=== PATIENT | female | born 1960 | race Caucasian/White ===

== ENCOUNTER 2016-10-31 02:08 | Emergency (ER) | payer OTHER ==
[~2016-10-31] VITALS: Ht 160 cm; Wt 70.0 kg
[~2016-10-31 02:08] MED LIST: ACCUNEB1.25 MG/3 IH; ANTIVERT25 MG PO; COLACE100 MG PO; DILAUDID2 MG PO; DUONEB 2.5-0.5 M3 ML AEROSOL; EFFEXOR XR150 MG PO; EFFEXOR50 MG PO; HUMIRA40 MG/0.1 SC; HYDROCODON-ACE1 EAC8 PO; LEVAQUIN750 MG PO; LEVOFLOXACIN500 MG PO; LEXAPRO20 MG PO; LYRICA50 MG PO; METHADONE1 MG/1 ML PO; MIRALAX17 GM PO; MOBIC15 MG PO; MORPHINE SULFAT15 M1; MOTRIN800 MG PO; MYCOSTATIN 100,60 ML PO; NEXIUM40 MG PO; NICOTINE PATCH1 EAC2 TD; NYSTATIN100000 UN1 PO; OPANA ER10 MG PO; OPANA ER15 MG PO; OXCARBAZEPINE150 MG PO; PREDNISONE50 MG PO; PROVENTIL,2.5 MG/3 M IH; PROZAC20 M1 PO; PROZAC40 MG PO; QUETIAPINE FUMA25 MG PO; SEROQUEL12.5 MG PO; SEROQUEL300 MG PO; SEROQUEL400 MG PO; SEROQUEL50 MG PO; SYMBICORT60 INHALAT IH; TRILEPTAL75 MG PO; TRILIPIX135 MG PO; Ultram PO; VALIUM5 MG PO; VALTREX50 MG/ML PO; VENLAFAXINE HC150 M1 PO; VICODIN,LORT1 TABLET PO; ZETIA10 MG PO
[2016-10-31 02:48] LABS: HEMATOCRIT 42.9 % (36.0-46.0); MCV 88.6 FL (83-99); MEAN PLAT.VOLUME 9.2 uM^3 (9.5-12.4); PLATELET COUNT 285 K/uL (156-360); RBC DIS.WIDTH-CV 12.6 % (11.8-14.6); RBC DIS.WIDTH-SD 40.2 % (39-53); RED BLOOD COUNT 4.84 M/uL (3.80-5.20); WHITE BLOOD COUNT 10.4 K/uL (4.1-10.2)
[2016-10-31 02:59] LABS: CHLORIDE 107 mEq/L (99-109); POTASSIUM 4.2 mEq/L (3.7-5.4); SODIUM 143 mEq/L (136-147)
[2016-10-31 03:01] LABS: GLUCOSE 114 mg/dL (70-99)
[2016-10-31 03:02] LABS: ANION GAP 13 MEQ/L (2-14)
[2016-10-31 03:05] LABS: GFR ESTIMATE (CALCULATED) > 59 mL/min/
[2016-10-31 03:06] LABS: UREA NITROGEN (BUN) 11 mg/dL (9-23)
[2016-10-31 03:09] LABS: TROP-I INTERPRETATION NEGATIVE; TROPONIN-I 0.02 ng/mL (0.0-0.30)
[2016-10-31 03:37] LABS: SERUM ETHYL ALCOHOL < 10 mg/dL
[2016-10-31 04:36] VITALS: BP 138/88
== END 2016-10-31 04:42 | disposition left against medical advice (07) ==
LOC: EME → EDBD 02:08 → EME 04:42
PROVIDERS: Emergency Medicine
DX: T40.2X1A Poisoning by other opioids, accidental (unintentional), initial encounter (principal); R07.9 Chest pain, unspecified; R25.1 Tremor, unspecified; E78.5 Hyperlipidemia, unspecified; J44.9 Chronic obstructive pulmonary disease, unspecified; K21.9 Gastro-esophageal reflux disease without esophagitis; F17.200 Nicotine dependence, unspecified, uncomplicated
CPT/HCPCS: 80048; 84484; 85027; 93005; 99281; 99285; G0480; J2060; J7030

== ENCOUNTER 2017-02-22 09:01 | Emergency (ER) | payer OTHER ==
[~2017-02-22] VITALS: Ht 160 cm; Wt 83.5 kg
[~2017-02-22 09:01] MED LIST changes: +PREDNISONE5 MG PO
[2017-02-22] MEDS ORDERED: LEVOFLOXACIN500 MG PO (09:30)
[2017-02-22] MEDS ORDERED: SEROQUEL12.5 MG PO (09:32)
[2017-02-22 10:05] LABS: BASOPHIL COUNT 0.1 K/uL (0-0.1); EOSINOPHIL (%) 2.8 % (0-5); EOSINOPHIL COUNT 0.2 K/uL (0-0.3); HEMATOCRIT 40.5 % (36.0-46.0); IMMATURE GRANULOCYTE COUNT 0.1 K/uL; INSTRUMENT ABS NEUTROPHIL CT 4.5 K/uL; MCH 31.1 PG (29.0-34.0); MCHC 33.8 G/DL (30.0-36.0); MCV 91.8 FL (83-99); MEAN PLAT.VOLUME 9.6 uM^3 (9.5-12.4); MONOCYTE (%) 9.8 % (3-12); MONOCYTE COUNT 0.8 K/uL (0-0.8); NEUTROPHIL (%) 59.2 % (45-76); NEUTROPHIL COUNT 4.5 K/uL (1.8-6.4); PLATELET COUNT 283 K/uL (156-360); RBC DIS.WIDTH-CV 12.5 % (11.8-14.6); RBC DIS.WIDTH-SD 42.1 % (39-53); RED BLOOD COUNT 4.41 M/uL (3.80-5.20); WHITE BLOOD COUNT 7.6 K/uL (4.1-10.2)
[2017-02-22 10:13] LABS: CHLORIDE 102 mEq/L (99-109); POTASSIUM 4.8 mEq/L (3.7-5.4); SODIUM 137 mEq/L (136-147)
[2017-02-22 10:15] LABS: GLUCOSE 88 mg/dL (70-99)
[2017-02-22 10:16] LABS: ANION GAP 12 MEQ/L (2-14)
[2017-02-22 10:19] LABS: GFR ESTIMATE (CALCULATED) > 59 mL/min/
[2017-02-22 10:20] LABS: UREA NITROGEN (BUN) 10 mg/dL (9-23)
[2017-02-22 10:27] LABS: ADD MIUA? YES; BILIRUBIN NEGATIVE; BLOOD SMALL; COLOR STRAW ((YELLOW)); GLUCOSE (STRIP) NEGATIVE; KETONES NEGATIVE; LEUKOCYTES NEGATIVE; NITRITE NEGATIVE; PROTEIN (STRIP) NEGATIVE; SPECIFIC GRAVITY 1.005 (1.000-1.030); UROBILINOGEN 0.2 MG/DL (0.2-1.0)
[2017-02-22 10:28] LABS: TROP-I INTERPRETATION NEGATIVE; TROPONIN-I < 0.01 ng/mL (0.0-0.30)
[2017-02-22 10:33] LABS: BACTERIA NONE SEEN /HPF; EPITHELIAL CELLS NONE SEEN /HPF; MUCUS NONE SEEN /LPF; RED BLOOD CELLS 0-5 /HPF (0-5); UCUL ADDED? NO; WHITE BLOOD CELLS 0-5 /HPF (0-5)
[2017-02-22] MEDS ORDERED: PROVENTIL,2.5 MG/3 M IH (11:28)
[2017-02-22 11:35] VITALS: BP 116/81
== END 2017-02-22 11:36 | disposition home or self-care (01) ==
LOC: EME 09:01
PROVIDERS: Emergency Medicine
DX: J44.1 Chronic obstructive pulmonary disease with (acute) exacerbation (principal); J44.0 Chronic obstructive pulmonary disease with (acute) lower respiratory infection; J18.9 Pneumonia, unspecified organism; R07.89 Other chest pain; J45.909 Unspecified asthma, uncomplicated; E78.5 Hyperlipidemia, unspecified; F31.9 Bipolar disorder, unspecified; F17.200 Nicotine dependence, unspecified, uncomplicated
CPT/HCPCS: 71010; 80048; 81003; 84484; 85025; 93005; 94640; 99281; 99284; J7512

== ENCOUNTER 2017-03-24 06:42 | Emergency (ER) | payer OTHER ==
[~2017-03-24] VITALS: Ht 165.1 cm; Wt 82.0 kg
[2017-03-24 06:46] VITALS: BP 115/68
== END 2017-03-24 06:56 | disposition left against medical advice (07) ==
LOC: EME 06:42
DX: R07.9 Chest pain, unspecified (principal); Z53.21 Procedure and treatment not carried out due to patient leaving prior to being seen by health care provider
CPT/HCPCS: 93005

== ENCOUNTER 2017-04-21 05:56 | Emergency (ER) | payer OTHER ==
[~2017-04-21] VITALS: Ht 160 cm; Wt 80.9 kg
[2017-04-21] MEDS ORDERED: MEDROL DOSEPAK4 MG PO (06:52)
[2017-04-21 07:07] VITALS: BP 139/104
== END 2017-04-21 07:07 | disposition home or self-care (01) ==
LOC: EME 05:56
DX: M19.90 Unspecified osteoarthritis, unspecified site (principal); J44.0 Chronic obstructive pulmonary disease with (acute) lower respiratory infection; J18.9 Pneumonia, unspecified organism; F17.200 Nicotine dependence, unspecified, uncomplicated; E78.5 Hyperlipidemia, unspecified; F32.9 Major depressive disorder, single episode, unspecified; Z88.0 Allergy status to penicillin
CPT/HCPCS: 99281; 99284

== ENCOUNTER → 2017-05-13 | Outpatient (CLI) | payer MEDICARE, OTHER ==
[~2017-05-13] MED LIST changes: +MEDROL DOSEPAK4 MG PO
== END | disposition home or self-care (01) ==
LOC: CDC 08:34
DX: Z79.891 Long term (current) use of opiate analgesic (principal)
CPT/HCPCS: 93000

== ENCOUNTER 2017-06-05 05:20 | Emergency (ER) | payer OTHER ==
[~2017-06-05] VITALS: Ht 160 cm; Wt 85.4 kg
[2017-06-05 06:40] LABS: HEMATOCRIT 41.3 % (36.0-46.0); MCH 30.8 PG (29.0-34.0); MCHC 33.9 G/DL (30.0-36.0); MEAN PLAT.VOLUME 9.6 uM^3 (9.5-12.4); PLATELET COUNT 264 K/uL (156-360); RBC DIS.WIDTH-CV 12.5 % (11.8-14.6); RED BLOOD COUNT 4.54 M/uL (3.80-5.20); WHITE BLOOD COUNT 6.8 K/uL (4.1-10.2)
[2017-06-05] MEDS ORDERED: NAPROSYN500 MG PO (07:04)
[2017-06-05] MEDS ORDERED: PREDNISONE5 MG PO (07:04)
[2017-06-05 07:26] LABS: CHLORIDE 102 mEq/L (99-109); POTASSIUM 4.7 mEq/L (3.7-5.4); SODIUM 138 mEq/L (136-147)
[2017-06-05 07:28] LABS: GLUCOSE 107 mg/dL (70-99)
[2017-06-05 07:29] LABS: ANION GAP 11 MEQ/L (2-14)
[2017-06-05 07:30] LABS: TOTAL BILIRUBIN 0.2 mg/dL (0.0-1.0)
[2017-06-05 07:31] LABS: ALKALINE PHOSPHATASE 103 IU/L (3-129)
[2017-06-05 07:32] LABS: GFR ESTIMATE (CALCULATED) > 59 mL/min/
[2017-06-05 07:33] LABS: UREA NITROGEN (BUN) 7 mg/dL (9-23)
[2017-06-05 08:40] VITALS: BP 136/90
== END 2017-06-05 08:42 | disposition home or self-care (01) ==
LOC: EME 05:20
PROVIDERS: Nurse Practitioner Family
DX: M06.9 Rheumatoid arthritis, unspecified (principal); E78.5 Hyperlipidemia, unspecified; J44.9 Chronic obstructive pulmonary disease, unspecified; F17.200 Nicotine dependence, unspecified, uncomplicated
CPT/HCPCS: 71020; 80053; 85027; 99281; 99284; J7512

== ENCOUNTER 2017-07-30 09:36 | Inpatient (IN) | payer OTHER ==
[~2017-07-30] VITALS: Ht 160 cm; Wt 85.1 kg
[~2017-07-30 09:36] MED LIST changes: +NAPROSYN500 MG PO
[2017-07-30 12:05] LABS: HEMATOCRIT 42.4 % (36.0-46.0); MCH 30.9 PG (29.0-34.0); MCHC 33.3 G/DL (30.0-36.0); PLATELET COUNT 333 K/uL (156-360); RBC DIS.WIDTH-CV 13.3 % (11.8-14.6); RBC DIS.WIDTH-SD 45.5 % (39-53); RED BLOOD COUNT 4.56 M/uL (3.80-5.20); WHITE BLOOD COUNT 18.6 K/uL (4.1-10.2)
[2017-07-30 12:42] LABS: CHLORIDE 100 mEq/L (99-109); D-DIMER ELISA < 150.00 ng/mLDDU (<230); POTASSIUM 4.3 mEq/L (3.7-5.4); SODIUM 137 mEq/L (136-147)
[2017-07-30 12:43] LABS: GLUCOSE 115 mg/dL (70-99)
[2017-07-30 12:45] LABS: ANION GAP 11 MEQ/L (2-14)
[2017-07-30 12:47] LABS: GFR ESTIMATE (CALCULATED) > 59 mL/min/
[2017-07-30 12:48] LABS: UREA NITROGEN (BUN) 14 mg/dL (9-23)
[2017-07-30] MEDS ORDERED: MIRALAX255 GM PO (13:54)
[2017-07-30] MEDS ORDERED: BIAXIN500 MG PO (13:54)
[2017-07-30] MEDS ORDERED: OXYBUTYNIN CHLOR5 M1 PO (13:55)
[2017-07-30] MEDS ORDERED: DITROPAN XL5 MG PO (13:56)
[2017-07-30] MEDS ORDERED: CALCIUM 500 MG1 EACH PO (13:57)
[2017-07-30] MEDS ORDERED: VITAMIN D2000 UNI1 PO (13:57)
[2017-07-30] MEDS ORDERED: VITAMIN B COMP1 EACH PO (13:58)
[2017-07-30 16:43] VITALS: BP 158/84
[2017-07-30 23:09] VITALS: BP 161/84
[2017-07-31 02:09] LABS: ADD MIUA? YES; BILIRUBIN NEGATIVE; BLOOD SMALL; COLOR YELLOW ((YELLOW)); GLUCOSE (STRIP) 50; KETONES NEGATIVE; LEUKOCYTES NEGATIVE; NITRITE NEGATIVE; PROTEIN (STRIP) NEGATIVE; UROBILINOGEN 0.2 MG/DL (0.2-1.0)
[2017-07-31 02:11] LABS: BACTERIA NONE SEEN /HPF; EPITHELIAL CELLS RARE /HPF; MUCUS TRACE /LPF; UCUL ADDED? NO; WHITE BLOOD CELLS 0-5 /HPF (0-5)
[2017-07-31 08:02] VITALS: BP 132/92
[2017-07-31 08:47] LABS: INTERNAL CONTROL VALID? YES
[2017-07-31 10:00] LABS: BASOPHIL COUNT 0.1 K/uL (0-0.1); EOSINOPHIL (%) 0 % (0-5); HEMATOCRIT 40.5 % (36.0-46.0); IMMATURE GRANULOCYTE (%) 3.3 % (0.0-0.7); IMMATURE GRANULOCYTE COUNT 0.8 K/uL; INSTRUMENT ABS NEUTROPHIL CT 20.2 K/uL; LYMPHOCYTE COUNT 1.1 K/uL (1.0-2.8); MCH 30.8 PG (29.0-34.0); MCHC 32.6 G/DL (30.0-36.0); MCV 94.6 FL (83-99); MEAN PLAT.VOLUME 9.4 uM^3 (9.5-12.4); MONOCYTE (%) 3.7 % (3-12); MONOCYTE COUNT 0.9 K/uL (0-0.8); NEUTROPHIL (%) 87.9 % (45-76); NEUTROPHIL COUNT 20.2 K/uL (1.8-6.4); PLATELET COUNT 314 K/uL (156-360); RBC DIS.WIDTH-CV 13.2 % (11.8-14.6); RBC DIS.WIDTH-SD 45.8 % (39-53); RED BLOOD COUNT 4.28 M/uL (3.80-5.20)
[2017-07-31 10:24] LABS: ALKALINE PHOSPHATASE 78 IU/L (3-129); ANION GAP 13 MEQ/L (2-14); CHLORIDE 98 MEQ/L (99-109); GFR ESTIMATE (CALCULATED) > 59 mL/min/; POTASSIUM 4.5 MEQ/L (3.7-5.4); SAMPLE HEMOLYSIS CHECK 0; SAMPLE ICTERIC CHECK 0; SAMPLE LIPEMIA CHECK 0; SODIUM 138 MEQ/L (136-147); TOTAL BILIRUBIN 0.2 MG/DL (0.0-1.0); UREA NITROGEN (BUN) 15 mg/dL (9-23)
[2017-07-31 10:26] LABS: GLUCOSE 274 mg/dL (70-99)
[2017-07-31 16:19] VITALS: BP 140/88
[2017-07-31 22:36] VITALS: BP 160/84
[2017-08-01 07:25] VITALS: BP 148/84
[2017-08-01 15:52] VITALS: BP 137/78
[2017-08-01 16:18] LABS: POINT-OF-CARE METER ID UU13113725
[2017-08-01 22:05] LABS: POINT-OF-CARE METER ID UU13113774
[2017-08-01 23:40] VITALS: BP 133/87
[2017-08-02 06:17] LABS: POINT-OF-CARE METER ID UU13113774
[2017-08-02 07:43] VITALS: BP 142/82
[2017-08-02 11:23] LABS: POINT-OF-CARE METER ID UU13113725
[2017-08-02 12:06] LABS: Estimated Average Glucose 148 mg/dL (70-123); HEMOGLOBIN A1c (GLYCOHEMOGLOB) 6.8 % HGB (Below 5.7)
[2017-08-02 13:58] VITALS: BP 184/93
[2017-08-02 16:18] LABS: POINT-OF-CARE METER ID UU13113725
[2017-08-02 16:31] VITALS: BP 148/80
[2017-08-02 21:12] LABS: POINT-OF-CARE METER ID UU13113774
[2017-08-02 23:41] VITALS: BP 159/87
[2017-08-03 06:22] LABS: POINT-OF-CARE METER ID UU13113774
[2017-08-03 06:24] LABS: BASOPHIL COUNT 0.1 K/uL (0-0.1); EOSINOPHIL (%) 0 % (0-5); IMMATURE GRANULOCYTE (%) 4.5 % (0.0-0.7); IMMATURE GRANULOCYTE COUNT 1.2 K/uL; INSTRUMENT ABS NEUTROPHIL CT 22.8 K/uL; MCHC 32.9 G/DL (30.0-36.0); MCV 94.4 FL (83-99); MEAN PLAT.VOLUME 9.2 uM^3 (9.5-12.4); MONOCYTE (%) 3.7 % (3-12); NEUTROPHIL (%) 87.5 % (45-76); NEUTROPHIL COUNT 22.8 K/uL (1.8-6.4); PLATELET COUNT 325 K/uL (156-360); RBC DIS.WIDTH-CV 13.2 % (11.8-14.6); RBC DIS.WIDTH-SD 45.6 % (39-53); RED BLOOD COUNT 4.45 M/uL (3.80-5.20)
[2017-08-03 06:52] LABS: ALKALINE PHOSPHATASE 89 IU/L (3-129); ANION GAP 8 MEQ/L (2-14); CHLORIDE 96 MEQ/L (99-109); GFR ESTIMATE (CALCULATED) > 59 mL/min/; GLUCOSE 231 mg/dL (70-99); POTASSIUM 4.5 MEQ/L (3.7-5.4); SAMPLE HEMOLYSIS CHECK 0; SAMPLE ICTERIC CHECK 0; SAMPLE LIPEMIA CHECK 0; SODIUM 137 MEQ/L (136-147); UREA NITROGEN (BUN) 19 mg/dL (9-23)
[2017-08-03 06:53] LABS: TOTAL BILIRUBIN 0.3 MG/DL (0.0-1.0)
[2017-08-03 08:00] VITALS: BP 162/99
[2017-08-03 10:45] VITALS: BP 166/94
[2017-08-03 11:28] LABS: POINT-OF-CARE METER ID UU13113774
[2017-08-03 16:30] VITALS: BP 149/99
[2017-08-03 16:40] LABS: POINT-OF-CARE METER ID UU13113774
[2017-08-03 21:17] LABS: POINT-OF-CARE METER ID UU13113774
[2017-08-03 23:36] VITALS: BP 126/79
[2017-08-04 05:57] LABS: HEMATOCRIT 42.1 % (36.0-46.0); MCH 29.9 PG (29.0-34.0); MCHC 31.8 G/DL (30.0-36.0); PLATELET COUNT 311 K/uL (156-360); RBC DIS.WIDTH-CV 13.1 % (11.8-14.6); RBC DIS.WIDTH-SD 45.2 % (39-53); RED BLOOD COUNT 4.48 M/uL (3.80-5.20); WHITE BLOOD COUNT 19.6 K/uL (4.1-10.2)
[2017-08-04 05:59] LABS: POINT-OF-CARE METER ID UU13113774
[2017-08-04 06:52] LABS: ABS NEUTROPHIL COUNT 18.4; EOSINOPHIL ABS CT 0; LYMPHOCYTES 5.3 % (15.0-45.0); MYELOCYTES 0.9 %; PLAT.SUFFICIENCY ADEQUATE; SEG.NEUTROPHILS 93.8 % (46.0-76.0)
[2017-08-04 07:29] LABS: ALKALINE PHOSPHATASE 81 IU/L (3-129); ANION GAP 12 MEQ/L (2-14); CHLORIDE 98 MEQ/L (99-109); GFR ESTIMATE (CALCULATED) > 59 mL/min/; GLUCOSE 280 mg/dL (70-99); POTASSIUM 4.6 MEQ/L (3.7-5.4); SAMPLE HEMOLYSIS CHECK 0; SAMPLE ICTERIC CHECK 0; SAMPLE LIPEMIA CHECK 0; SODIUM 139 MEQ/L (136-147); TOTAL BILIRUBIN 0.3 MG/DL (0.0-1.0); UREA NITROGEN (BUN) 27 mg/dL (9-23)
[2017-08-04 07:40] VITALS: BP 160/85
[2017-08-04 11:24] LABS: POINT-OF-CARE METER ID UU13113725
[2017-08-04 15:56] VITALS: BP 135/96
[2017-08-04 16:33] LABS: POINT-OF-CARE METER ID UU13113774
[2017-08-04 19:40] VITALS: BP 187/95
[2017-08-04 20:47] LABS: RESEND RESULTS RESEND RESULTS
[2017-08-04 21:12] LABS: INFLUENZA A VIRAL ANTIGEN NEGATIVE; INFLUENZA B VIRAL ANTIGEN NEGATIVE
[2017-08-04 21:14] LABS: POINT-OF-CARE METER ID UU13113774
[2017-08-05 01:11] VITALS: BP 141/88
[2017-08-05 03:55] VITALS: BP 133/100
[2017-08-05 04:48] VITALS: BP 130/68
[2017-08-05 06:22] LABS: POINT-OF-CARE METER ID UU13113725
[2017-08-05 07:14] LABS: ALKALINE PHOSPHATASE 77 IU/L (3-129); ANION GAP 6 MEQ/L (2-14); CHLORIDE 96 MEQ/L (99-109); GFR ESTIMATE (CALCULATED) > 59 mL/min/; HEMATOCRIT 43.3 % (36.0-46.0); MCH 30.6 PG (29.0-34.0); MCHC 32.3 G/DL (30.0-36.0); MCV 94.5 FL (83-99); PLATELET COUNT 315 K/uL (156-360); POTASSIUM 5.2 MEQ/L (3.7-5.4); RBC DIS.WIDTH-CV 13.3 % (11.8-14.6); RED BLOOD COUNT 4.58 M/uL (3.80-5.20); SAMPLE HEMOLYSIS CHECK 0; SAMPLE ICTERIC CHECK 0; SAMPLE LIPEMIA CHECK 0; SODIUM 136 MEQ/L (136-147); UREA NITROGEN (BUN) 23 mg/dL (9-23); WHITE BLOOD COUNT 28.4 K/uL (4.1-10.2)
[2017-08-05 07:15] LABS: GLUCOSE 113 mg/dL (70-99); TOTAL BILIRUBIN 0.4 MG/DL (0.0-1.0)
[2017-08-05 08:13] VITALS: BP 156/94
[2017-08-05 08:42] LABS: ABS NEUTROPHIL COUNT 23.7; ATYPICAL LYMPHOCYTE 0.4 %; BAND NEUTROPHILS 0.5 % (0-8.0); EOSINOPHIL ABS CT 0; INSTRUMENT ABS NEUTROPHIL CT 23.3 K/uL; LYMPHOCYTES 4.8 % (15.0-45.0); MYELOCYTES 1.7 %; PLAT.SUFFICIENCY ADEQUATE; SEG.NEUTROPHILS 83.1 % (46.0-76.0); SMUDGE CELLS 1.3
[2017-08-05 11:32] LABS: POINT-OF-CARE METER ID UU13113774
[2017-08-05 15:35] VITALS: BP 135/79; BP 1354/79
[2017-08-05 16:58] LABS: POINT-OF-CARE METER ID UU13113774
[2017-08-05 21:11] LABS: POINT-OF-CARE METER ID UU13113774
[2017-08-05 22:45] VITALS: BP 160/72
[2017-08-06 06:17] LABS: POINT-OF-CARE METER ID UU13113725
[2017-08-06 06:48] LABS: ANION GAP 6 MEQ/L (2-14); CHLORIDE 96 MEQ/L (99-109); GFR ESTIMATE (CALCULATED) > 59 mL/min/; POTASSIUM 4.4 MEQ/L (3.7-5.4); SAMPLE HEMOLYSIS CHECK 0; SAMPLE ICTERIC CHECK 0; SAMPLE LIPEMIA CHECK 0; SODIUM 137 MEQ/L (136-147); UREA NITROGEN (BUN) 23 mg/dL (9-23)
[2017-08-06 06:49] LABS: HEMATOCRIT 42.6 % (36.0-46.0); MCH 29.8 PG (29.0-34.0); MCHC 31.9 G/DL (30.0-36.0); MCV 93.4 FL (83-99); MEAN PLAT.VOLUME 8.8 uM^3 (9.5-12.4); PLATELET COUNT 274 K/uL (156-360); RBC DIS.WIDTH-CV 13.2 % (11.8-14.6); RBC DIS.WIDTH-SD 45.7 % (39-53); RED BLOOD COUNT 4.56 M/uL (3.80-5.20); WHITE BLOOD COUNT 19.7 K/uL (4.1-10.2)
[2017-08-06 06:54] LABS: GLUCOSE 82 mg/dL (70-99)
[2017-08-06 07:20] LABS: ABS NEUTROPHIL COUNT 16.1; ATYPICAL LYMPHOCYTE 4.3 %; BAND NEUTROPHILS 0.9 % (0-8.0); EOSINOPHIL ABS CT 0; INSTRUMENT ABS NEUTROPHIL CT 14.5 K/uL; LYMPHOCYTES 7.8 % (15.0-45.0); METAMYELOCYTES 3.5 %; PLAT.SUFFICIENCY ADEQUATE; POLYCHROMASIA 1+; SEG.NEUTROPHILS 80.9 % (46.0-76.0); TARGET CELLS 1+; TEAR DROP CELLS 1+
[2017-08-06 08:15] VITALS: BP 145/89
[2017-08-06 11:28] LABS: POINT-OF-CARE METER ID UU13113774
[2017-08-06 15:24] VITALS: BP 138/78
[2017-08-06 16:54] LABS: POINT-OF-CARE METER ID UU13113774
[2017-08-06 20:49] LABS: POINT-OF-CARE METER ID UU13113774
[2017-08-06 23:01] VITALS: BP 137/85
[2017-08-07 06:02] LABS: POINT-OF-CARE METER ID UU13113774
[2017-08-07 06:26] LABS: HEMATOCRIT 42.8 % (36.0-46.0); MCH 29.8 PG (29.0-34.0); MCV 93.2 FL (83-99); MEAN PLAT.VOLUME 8.9 uM^3 (9.5-12.4); PLATELET COUNT 285 K/uL (156-360); RBC DIS.WIDTH-CV 13.2 % (11.8-14.6); RBC DIS.WIDTH-SD 45.4 % (39-53); RED BLOOD COUNT 4.59 M/uL (3.80-5.20); WHITE BLOOD COUNT 19.6 K/uL (4.1-10.2)
[2017-08-07 06:32] LABS: ABS NEUTROPHIL COUNT 16.5; ANISOCYTOSIS 1+; ATYPICAL LYMPHOCYTE 6.2 %; BAND NEUTROPHILS 3.5 % (0-8.0); EOSINOPHIL ABS CT 0.2; EOSINOPHILS 0.9 % (0-5.0); INSTRUMENT ABS NEUTROPHIL CT 14.2 K/uL; LYMPHOCYTES 3.6 % (15.0-45.0); METAMYELOCYTES 1.8 %; PLAT.SUFFICIENCY ADEQUATE; SEG.NEUTROPHILS 80.5 % (46.0-76.0)
[2017-08-07 06:58] LABS: ALKALINE PHOSPHATASE 85 IU/L (3-129); ANION GAP 10 MEQ/L (2-14); CHLORIDE 96 MEQ/L (99-109); GFR ESTIMATE (CALCULATED) > 59 mL/min/; GLUCOSE 150 mg/dL (70-99); SAMPLE HEMOLYSIS CHECK 0; SAMPLE ICTERIC CHECK 0; SAMPLE LIPEMIA CHECK 0; SODIUM 139 MEQ/L (136-147); TOTAL BILIRUBIN 0.3 MG/DL (0.0-1.0); UREA NITROGEN (BUN) 18 mg/dL (9-23)
[2017-08-07 08:42] VITALS: BP 146/91
[2017-08-07 11:33] LABS: POINT-OF-CARE METER ID UU13113725
[2017-08-07 16:07] VITALS: BP 137/63
[2017-08-07 16:12] LABS: POINT-OF-CARE METER ID UU13113725
[2017-08-07 21:39] LABS: POINT-OF-CARE METER ID UU13113725
[2017-08-08 06:00] LABS: POINT-OF-CARE METER ID UU13113725
[2017-08-08 06:26] LABS: HEMATOCRIT 41.3 % (36.0-46.0); MCH 29.6 PG (29.0-34.0); MCHC 31.7 G/DL (30.0-36.0); MCV 93.4 FL (83-99); MEAN PLAT.VOLUME 9.1 uM^3 (9.5-12.4); PLATELET COUNT 273 K/uL (156-360); RBC DIS.WIDTH-CV 13.2 % (11.8-14.6); RBC DIS.WIDTH-SD 45.3 % (39-53); RED BLOOD COUNT 4.42 M/uL (3.80-5.20); WHITE BLOOD COUNT 18.2 K/uL (4.1-10.2)
[2017-08-08 06:54] LABS: ANION GAP 7 MEQ/L (2-14); CHLORIDE 95 MEQ/L (99-109); GFR ESTIMATE (CALCULATED) > 59 mL/min/; POTASSIUM 4.3 MEQ/L (3.7-5.4); SAMPLE HEMOLYSIS CHECK 0; SAMPLE ICTERIC CHECK 0; SAMPLE LIPEMIA CHECK 0; SODIUM 139 MEQ/L (136-147); UREA NITROGEN (BUN) 15 mg/dL (9-23)
[2017-08-08 06:55] LABS: GLUCOSE 81 mg/dL (70-99)
[2017-08-08 06:56] LABS: ABS NEUTROPHIL COUNT 14.3; ATYPICAL LYMPHOCYTE 2.7 %; EOSINOPHIL ABS CT 0.5; EOSINOPHILS 2.6 % (0-5.0); INSTRUMENT ABS NEUTROPHIL CT 12.7 K/uL; LYMPHOCYTES 11.5 % (15.0-45.0); METAMYELOCYTES 1.8 %; NUCLEATED RBC'S 0.9; PLAT.SUFFICIENCY ADEQUATE; SEG.NEUTROPHILS 78.8 % (46.0-76.0); SMUDGE CELLS 6.2
[2017-08-08 07:44] VITALS: BP 144/71
[2017-08-08 11:21] LABS: POINT-OF-CARE METER ID UU13113725
[2017-08-08] MEDS ORDERED: NICOTINE PATCH1 EAC2 TD (11:51)
[2017-08-08] MEDS ORDERED: METFORMIN HCL500 MG PO (11:52)
[2017-08-08] MEDS ORDERED: SPIRIVA RESPIMAT4 GM IH (11:53)
== END 2017-08-08 16:04 | disposition home or self-care (01) | DRG 193 ==
LOC: EME 09:36 → EDOF 13:17 → 5EAST 13:17 → ENRESERV 13:20 → EDOF 13:54 → 5EAST 15:32 → ENPENDDIS 08-08 → 5EAST 08-08 16:04
PROVIDERS: Hospitalist; Nurse Practitioner Adult Health; Nurse Practitioner Family; Student in an Organized Health Care Education/Training Program
PROC: 02HV33Z Insertion of Infusion Device into Superior Vena Cava, Percutaneous Approach (ICD-10-PCS; principal; 2017-07-30)
PROC: 0W9930Z Drainage of Right Pleural Cavity with Drainage Device, Percutaneous Approach (ICD-10-PCS; 2017-08-03)
DX: J18.9 Pneumonia, unspecified organism (principal); J96.01 Acute respiratory failure with hypoxia; J95.811 Postprocedural pneumothorax; J93.82 Other air leak; J44.0 Chronic obstructive pulmonary disease with (acute) lower respiratory infection; J44.1 Chronic obstructive pulmonary disease with (acute) exacerbation; M06.9 Rheumatoid arthritis, unspecified; B37.0 Candidal stomatitis; F11.20 Opioid dependence, uncomplicated; R73.9 Hyperglycemia, unspecified; T38.0X5A Adverse effect of glucocorticoids and synthetic analogues, initial encounter; E78.5 Hyperlipidemia, unspecified; I87.8 Other specified disorders of veins; R00.0 Tachycardia, unspecified; R11.2 Nausea with vomiting, unspecified; R68.2 Dry mouth, unspecified; R73.02 Impaired glucose tolerance (oral); F10.10 Alcohol abuse, uncomplicated; F17.200 Nicotine dependence, unspecified, uncomplicated; F20.9 Schizophrenia, unspecified; F31.9 Bipolar disorder, unspecified; F43.10 Post-traumatic stress disorder, unspecified; Z79.51 Long term (current) use of inhaled steroids; Z87.01 Personal history of pneumonia (recurrent)
CPT/HCPCS: 71010; 71020; 71250; 80048; 80053; 80076; 81003; 82948; 83036; 83605; 83880; 85025; 85027; 85379; 87040; 87449; 87502; 93005; 94010; 94640; 94640 76; 94760; 94799; 99202; 99281; 99285; J0456; J0696; J1170; J1200; J1650; J1815; J2250; J2405; J2920; J2930; J3010; J7050; J7512

== ENCOUNTER → 2017-10-08 | Emergency (ER) | payer OTHER ==
[~2017-10-08] VITALS: Ht 160 cm; Wt 85.6 kg
[~2017-10-08] MED LIST changes: +AMITRIPTYLINE H50 MG PO; +AMMONIUM LACTA140 GM; +AVALIDE 300/1 TABLET PO; +BIAXIN500 MG PO; +CALCIUM 500 MG1 EACH PO; +CENTANY1 EACH; +CYMBALTA60 MG PO; +DITROPAN XL5 MG PO; +DUODERM CGF1 EACH; +EFFIENT10 MG PO; +FLEXERIL5 MG PO; +GABAPENTIN600 MG PO; +GLUCOPHAGE1000 MG PO; +ISOSORBIDE DINI20 MG PO; +KLOR-CON M2020 MEQ PO; +LEVEMIR FL100 UNIT/1 SQ; +LIPITOR20 MG PO; +LOPRESSOR50 MG PO; +METFORMIN HCL500 MG PO; +MIRALAX255 GM PO; +NORVASC5 MG PO; +NOVOLOG PE100 UNITS/ SQ; +OXYBUTYNIN CHLOR5 M1 PO; +OXYCONTIN15 MG PO; +PROTONIX40 MG PO; +SPIRIVA RESPIMAT4 GM IH; +TRADJENTA5 MG PO; +VIAGRA100 MG PO; +VITAMIN B COMP1 EACH PO; +VITAMIN D2000 UNI1 PO
[2017-10-08 08:21] VITALS: BP 186/72
== END | disposition home or self-care (01) ==
LOC: EME 04:15
DX: M77.01 Medial epicondylitis, right elbow (principal); F17.200 Nicotine dependence, unspecified, uncomplicated; F43.10 Post-traumatic stress disorder, unspecified; Z88.5 Allergy status to narcotic agent; Z88.0 Allergy status to penicillin
CPT/HCPCS: 73080; 99281; 99284

== ENCOUNTER 2017-10-13 06:53 | Emergency (ER) | payer OTHER ==
[~2017-10-13] VITALS: Ht 160 cm; Wt 88.3 kg
[2017-10-13 06:56] VITALS: BP 140/100
== END 2017-10-13 07:27 | disposition left against medical advice (07) ==
LOC: EME 06:53
DX: M25.421 Effusion, right elbow (principal); M79.89 Other specified soft tissue disorders; Z53.21 Procedure and treatment not carried out due to patient leaving prior to being seen by health care provider

== ENCOUNTER 2017-10-15 04:16 | Emergency (ER) | payer OTHER ==
[~2017-10-15] VITALS: Ht 160 cm; Wt 88.3 kg
[2017-10-15 05:47] LABS: ALBUMIN 3.8 g/dL (3.2-4.8); CHLORIDE 104 mEq/L (99-109); POTASSIUM 4.9 mEq/L (3.7-5.4); SODIUM 135 mEq/L (136-147)
[2017-10-15 05:49] LABS: GLUCOSE 94 mg/dL (70-99); TOTAL PROTEIN 6.6 g/dL (6.4-8.3)
[2017-10-15 05:51] LABS: TOTAL BILIRUBIN 0.3 mg/dL (0.0-1.0)
[2017-10-15 05:53] LABS: ALKALINE PHOSPHATASE 96 IU/L (3-129); CREATININE 0.7 mg/dL (0.6-1.3); GFR ESTIMATE (CALCULATED) > 59 mL/min/
[2017-10-15 05:54] LABS: UREA NITROGEN (BUN) 10 mg/dL (9-23)
[2017-10-15 05:55] LABS: AST (GOT) 23 IU/L (2-34); DIRECT BILIRUBIN 0.1 mg/dL (0.0-0.3)
[2017-10-15 05:56] LABS: ALT (GPT) 15 IU/L (3-49)
[2017-10-15 05:59] LABS: TROP-I INTERPRETATION NEGATIVE; TROPONIN-I < 0.01 ng/mL (0.0-0.30)
[2017-10-15] MEDS ORDERED: KEFLEX500 MG PO (06:04)
[2017-10-15 06:37] VITALS: BP 128/88
== END 2017-10-15 06:38 | disposition home or self-care (01) ==
LOC: EME 04:16
PROVIDERS: Emergency Medicine
DX: L03.116 Cellulitis of left lower limb (principal); L03.115 Cellulitis of right lower limb; R60.0 Localized edema; J44.9 Chronic obstructive pulmonary disease, unspecified; E78.5 Hyperlipidemia, unspecified; F32.9 Major depressive disorder, single episode, unspecified; F31.9 Bipolar disorder, unspecified; F25.9 Schizoaffective disorder, unspecified; F17.200 Nicotine dependence, unspecified, uncomplicated; Z88.0 Allergy status to penicillin; Z88.1 Allergy status to other antibiotic agents; Z88.5 Allergy status to narcotic agent
CPT/HCPCS: 80048; 80076; 83880; 84484; 85027

== ENCOUNTER 2017-10-22 03:37 | Emergency (ER) | payer OTHER ==
[~2017-10-22] VITALS: Ht 160 cm; Wt 85.6 kg
[~2017-10-22 03:37] MED LIST changes: +KEFLEX500 MG PO
[2017-10-22 04:46] LABS: HEMATOCRIT 40.1 % (36.0-46.0); HEMOGLOBIN 13.8 G/DL (11.9-15.5); MCH 31.3 PG (29.0-34.0); MCHC 34.4 G/DL (30.0-36.0); MCV 90.9 FL (83-99); PLATELET COUNT 271 K/uL (156-360); RBC DIS.WIDTH-CV 12.5 % (11.8-14.6); RBC DIS.WIDTH-SD 41.7 % (39-53); RED BLOOD COUNT 4.41 M/uL (3.80-5.20); WHITE BLOOD COUNT 7.5 K/uL (4.1-10.2)
[2017-10-22 05:19] LABS: CHLORIDE 104 mEq/L (99-109); POTASSIUM 4.4 mEq/L (3.7-5.4); SODIUM 136 mEq/L (136-147)
[2017-10-22 05:21] LABS: GLUCOSE 96 mg/dL (70-99)
[2017-10-22 05:25] LABS: CREATININE 0.8 mg/dL (0.6-1.3); GFR ESTIMATE (CALCULATED) > 59 mL/min/
[2017-10-22 05:26] LABS: UREA NITROGEN (BUN) 7 mg/dL (9-23)
[2017-10-22 06:13] LABS: APPEARANCE SL.HAZY ((CLEAR)); BILIRUBIN NEGATIVE; BLOOD SMALL; COLOR YELLOW ((YELLOW)); GLUCOSE (STRIP) NEGATIVE; KETONES NEGATIVE; LEUKOCYTES MODERATE; NITRITE NEGATIVE; PROTEIN (STRIP) NEGATIVE; SPECIFIC GRAVITY 1.013 (1.000-1.030); UROBILINOGEN 0.2 MG/DL (0.2-1.0)
[2017-10-22 06:25] LABS: BACTERIA RARE /HPF; EPITHELIAL CELLS 1+ /HPF; MUCUS TRACE /LPF; RED BLOOD CELLS 0-5 /HPF (0-5); UCUL ADDED? YES
[2017-10-22] MEDS ORDERED: MACROBID100 MG PO (06:49)
[2017-10-22] MEDS ORDERED: PREDNISONE20 MG PO (07:06)
[2017-10-22 07:12] VITALS: BP 102/60
== END 2017-10-22 07:10 | disposition home or self-care (01) ==
LOC: EME 03:37
PROVIDERS: Emergency Medicine
DX: J44.1 Chronic obstructive pulmonary disease with (acute) exacerbation (principal); N39.0 Urinary tract infection, site not specified; R19.7 Diarrhea, unspecified; E78.5 Hyperlipidemia, unspecified; F43.10 Post-traumatic stress disorder, unspecified; F32.9 Major depressive disorder, single episode, unspecified; F25.9 Schizoaffective disorder, unspecified; F17.200 Nicotine dependence, unspecified, uncomplicated; Z79.891 Long term (current) use of opiate analgesic; Z99.81 Dependence on supplemental oxygen; Z88.5 Allergy status to narcotic agent; Z88.0 Allergy status to penicillin; Z88.8 Allergy status to other drugs, medicaments and biological substances
CPT/HCPCS: 71046; 80048; 81003; 85027; 87086; 87502; 94640; J2405; J7030; J7512

== ENCOUNTER 2017-11-06 16:42 | Inpatient (IN) | payer OTHER ==
[~2017-11-06] VITALS: Ht 160 cm; Wt 87.1 kg
[~2017-11-06 16:42] MED LIST changes: +CYANOCOBALAM1000 MCG PO; +MACROBID100 MG PO; +PREDNISONE20 MG PO; -VITAMIN B COMP1 EACH PO
[2017-11-06 18:36] LABS: HEMATOCRIT 40.5 % (36.0-46.0); HEMOGLOBIN 13.6 G/DL (11.9-15.5); MCH 31.3 PG (29.0-34.0); MCHC 33.6 G/DL (30.0-36.0); MCV 93.1 FL (83-99); PLATELET COUNT 233 K/uL (156-360); RBC DIS.WIDTH-CV 12.6 % (11.8-14.6); RBC DIS.WIDTH-SD 43.3 % (39-53); RED BLOOD COUNT 4.35 M/uL (3.80-5.20); WHITE BLOOD COUNT 9.1 K/uL (4.1-10.2)
[2017-11-06 18:56] LABS: CHLORIDE 104 mEq/L (99-109); POTASSIUM 4.1 mEq/L (3.7-5.4); SODIUM 138 mEq/L (136-147)
[2017-11-06 18:58] LABS: GLUCOSE 124 mg/dL (70-99)
[2017-11-06 19:02] LABS: CREATININE 0.7 mg/dL (0.6-1.3); GFR ESTIMATE (CALCULATED) > 59 mL/min/
[2017-11-06 19:03] LABS: UREA NITROGEN (BUN) 13 mg/dL (9-23)
[2017-11-06 21:51] LABS: D-DIMER ELISA ND ng/mLDDU (<230)
[2017-11-06 23:15] VITALS: BP 142/74
[2017-11-07 03:45] VITALS: BP 139/82
[2017-11-07 06:31] LABS: MCH 30.9 PG (29.0-34.0); MCHC 33.3 G/DL (30.0-36.0); MCV 92.6 FL (83-99); PLATELET COUNT 235 K/uL (156-360); RBC DIS.WIDTH-CV 12.6 % (11.8-14.6); RED BLOOD COUNT 4.21 M/uL (3.80-5.20); WHITE BLOOD COUNT 6.9 K/uL (4.1-10.2)
[2017-11-07 07:33] VITALS: BP 127/73
[2017-11-07 08:08] LABS: CHLORIDE 106 MEQ/L (99-109); CREATININE 0.6 MG/DL (0.6-1.3); GFR ESTIMATE (CALCULATED) > 59 mL/min/; GLUCOSE 154 mg/dL (70-99); POTASSIUM 4.3 MEQ/L (3.7-5.4); SODIUM 139 MEQ/L (136-147); UREA NITROGEN (BUN) 13 mg/dL (9-23)
[2017-11-07 11:48] VITALS: BP 115/69
[2017-11-07] MEDS ORDERED: SEROQUEL50 MG PO (15:13)
[2017-11-07 15:25] VITALS: BP 132/79
[2017-11-07 19:30] VITALS: BP 143/87
[2017-11-08 00:49] VITALS: BP 166/108
[2017-11-08 05:37] LABS: BASOPHIL (%) 0.2 % (0-1); EOSINOPHIL (%) 0.1 % (0-5); HEMATOCRIT 38.6 % (36.0-46.0); HEMOGLOBIN 12.4 G/DL (11.9-15.5); IMMATURE GRANULOCYTE (%) 0.8 % (0.0-0.7); LYMPHOCYTE (%) 9.2 % (15-42); LYMPHOCYTE COUNT 1.1 K/uL (1.0-2.8); MCHC 32.1 G/DL (30.0-36.0); MCV 93.2 FL (83-99); MONOCYTE COUNT 0.4 K/uL (0-0.8); NEUTROPHIL (%) 86.7 % (45-76); NEUTROPHIL COUNT 10.1 K/uL (1.8-6.4); PLATELET COUNT 259 K/uL (156-360); RBC DIS.WIDTH-CV 12.7 % (11.8-14.6); RED BLOOD COUNT 4.14 M/uL (3.80-5.20); WHITE BLOOD COUNT 11.6 K/uL (4.1-10.2)
[2017-11-08 06:03] LABS: CHLORIDE 103 MEQ/L (99-109); CREATININE 0.7 MG/DL (0.6-1.3); GFR ESTIMATE (CALCULATED) > 59 mL/min/; GLUCOSE 205 mg/dL (70-99); POTASSIUM 3.9 MEQ/L (3.7-5.4); SODIUM 139 MEQ/L (136-147); UREA NITROGEN (BUN) 15 mg/dL (9-23)
[2017-11-08 08:34] VITALS: BP 126/8
[2017-11-08 12:53] VITALS: BP 132/74
[2017-11-08 16:49] VITALS: BP 128/78
[2017-11-08 23:42] VITALS: BP 135/73
[2017-11-09 06:03] LABS: CHLORIDE 102 MEQ/L (99-109); CREATININE 0.7 MG/DL (0.6-1.3); GFR ESTIMATE (CALCULATED) > 59 mL/min/; GLUCOSE 162 mg/dL (70-99); POTASSIUM 4.3 MEQ/L (3.7-5.4); SODIUM 137 MEQ/L (136-147); UREA NITROGEN (BUN) 17 mg/dL (9-23)
[2017-11-09 06:06] LABS: BASOPHIL (%) 0.2 % (0-1); EOSINOPHIL (%) 0.1 % (0-5); HEMATOCRIT 37.5 % (36.0-46.0); HEMOGLOBIN 12.3 G/DL (11.9-15.5); IMMATURE GRANULOCYTE (%) 1.2 % (0.0-0.7); LYMPHOCYTE (%) 10.6 % (15-42); LYMPHOCYTE COUNT 1.1 K/uL (1.0-2.8); MCHC 32.8 G/DL (30.0-36.0); MCV 94.5 FL (83-99); MONOCYTE (%) 5.5 % (3-12); MONOCYTE COUNT 0.6 K/uL (0-0.8); NEUTROPHIL (%) 82.4 % (45-76); NEUTROPHIL COUNT 8.7 K/uL (1.8-6.4); PLATELET COUNT 229 K/uL (156-360); RBC DIS.WIDTH-CV 12.9 % (11.8-14.6); RBC DIS.WIDTH-SD 44.5 % (39-53); RED BLOOD COUNT 3.97 M/uL (3.80-5.20); WHITE BLOOD COUNT 10.5 K/uL (4.1-10.2)
[2017-11-09 08:01] VITALS: BP 174/88
[2017-11-09 16:00] VITALS: BP 132/95
[2017-11-10] VITALS: BP 146/85
[2017-11-10 06:56] LABS: BASOPHIL (%) 0.5 % (0-1); EOSINOPHIL (%) 0.8 % (0-5); EOSINOPHIL COUNT 0.1 K/uL (0-0.3); HEMATOCRIT 38.4 % (36.0-46.0); HEMOGLOBIN 12.4 G/DL (11.9-15.5); IMMATURE GRANULOCYTE (%) 2.1 % (0.0-0.7); LYMPHOCYTE (%) 25.7 % (15-42); LYMPHOCYTE COUNT 2.2 K/uL (1.0-2.8); MCH 30.5 PG (29.0-34.0); MCHC 32.3 G/DL (30.0-36.0); MCV 94.3 FL (83-99); MONOCYTE (%) 10.2 % (3-12); MONOCYTE COUNT 0.9 K/uL (0-0.8); NEUTROPHIL (%) 60.7 % (45-76); NEUTROPHIL COUNT 5.2 K/uL (1.8-6.4); PLATELET COUNT 213 K/uL (156-360); RBC DIS.WIDTH-CV 12.8 % (11.8-14.6); RBC DIS.WIDTH-SD 44.3 % (39-53); RED BLOOD COUNT 4.07 M/uL (3.80-5.20); WHITE BLOOD COUNT 8.5 K/uL (4.1-10.2)
[2017-11-10 07:19] LABS: CHLORIDE 101 MEQ/L (99-109); CREATININE 0.7 MG/DL (0.6-1.3); GFR ESTIMATE (CALCULATED) > 59 mL/min/; SODIUM 140 MEQ/L (136-147); UREA NITROGEN (BUN) 22 mg/dL (9-23)
[2017-11-10 07:22] LABS: GLUCOSE 78 mg/dL (70-99)
[2017-11-10 07:48] VITALS: BP 151/88
[2017-11-10] MEDS ORDERED: LEVAQUIN750 MG PO (09:54)
[2017-11-10] MEDS ORDERED: PREDNISONE5 M1 PO (09:56)
[2017-11-10] MEDS ORDERED: FLONASE16 G1 BOTH NARES (11:11)
== END 2017-11-10 14:40 | disposition home health service (06) | DRG 189 ==
LOC: EME 16:42 → EDOF 21:02 → 5SOUTH 21:02 → ENRESERV 21:14 → 5SOUTH 23:03
PROVIDERS: Emergency Medicine; Hospitalist; Internal Medicine; Physician Assistant
PROC: 02HV33Z Insertion of Infusion Device into Superior Vena Cava, Percutaneous Approach (ICD-10-PCS; principal; 2017-11-07)
DX: J96.21 Acute and chronic respiratory failure with hypoxia (principal); J18.9 Pneumonia, unspecified organism; J44.0 Chronic obstructive pulmonary disease with (acute) lower respiratory infection; J44.1 Chronic obstructive pulmonary disease with (acute) exacerbation; Z99.81 Dependence on supplemental oxygen; F20.9 Schizophrenia, unspecified; F11.20 Opioid dependence, uncomplicated; F31.9 Bipolar disorder, unspecified; E11.9 Type 2 diabetes mellitus without complications; G47.31 Primary central sleep apnea; G47.33 Obstructive sleep apnea (adult) (pediatric); G89.29 Other chronic pain; I87.8 Other specified disorders of veins; M06.9 Rheumatoid arthritis, unspecified; F14.10 Cocaine abuse, uncomplicated; F17.210 Nicotine dependence, cigarettes, uncomplicated; E66.9 Obesity, unspecified; Z68.34 Body mass index [BMI] 34.0-34.9, adult; Z87.01 Personal history of pneumonia (recurrent); Z88.0 Allergy status to penicillin; Z88.5 Allergy status to narcotic agent; Z79.899 Other long term (current) drug therapy; Z91.19 Patient's noncompliance with other medical treatment and regimen
CPT/HCPCS: 71045; 71046; 71250; 80048; 80202; 81003; 82948; 83605; 83735; 85025; 85027; 85379; 87040; 87070; 87076; 87077; 87186; 87205; 87502; 87801; 94640; 94640 76; 94760; 94799; 99202; 99281; 99285; C1751; J0696; J1100; J1644; J1815; J1956; J2920; J2930; J3370; J7030; J7512; J7644

== ENCOUNTER 2017-11-19 20:07 | Emergency (ER) | payer OTHER ==
[~2017-11-19] VITALS: Ht 160 cm; Wt 90.5 kg
[~2017-11-19 20:07] MED LIST changes: +FLONASE16 G1 BOTH NARES; +PREDNISONE5 M1 PO
[2017-11-19 20:49] VITALS: BP 113/72
== END 2017-11-19 20:45 | disposition left against medical advice (07) ==
LOC: EME 20:07
DX: R06.00 Dyspnea, unspecified (principal); Z53.21 Procedure and treatment not carried out due to patient leaving prior to being seen by health care provider
CPT/HCPCS: 80048; 85027; 99281; 99284; J1100; J7644

== ENCOUNTER 2017-12-08 05:58 | Emergency (ER) | payer OTHER ==
[~2017-12-08] VITALS: Ht 160 cm; Wt 93.3 kg
[2017-12-08 07:01] LABS: BASOPHIL (%) 0.4 % (0-1); EOSINOPHIL COUNT 0.1 K/uL (0-0.3); HEMATOCRIT 41.6 % (36.0-46.0); IMMATURE GRANULOCYTE (%) 0.7 % (0.0-0.7); LYMPHOCYTE (%) 33.9 % (15-42); LYMPHOCYTE COUNT 2.8 K/uL (1.0-2.8); MCH 30.8 PG (29.0-34.0); MCHC 33.7 G/DL (30.0-36.0); MCV 91.4 FL (83-99); MONOCYTE COUNT 0.7 K/uL (0-0.8); NEUTROPHIL COUNT 4.6 K/uL (1.8-6.4); PLATELET COUNT 205 K/uL (156-360); RBC DIS.WIDTH-CV 12.9 % (11.8-14.6); RBC DIS.WIDTH-SD 42.6 % (39-53); RED BLOOD COUNT 4.55 M/uL (3.80-5.20); WHITE BLOOD COUNT 8.2 K/uL (4.1-10.2)
[2017-12-08 07:47] LABS: CHLORIDE 103 MEQ/L (99-109); CREATININE 0.7 MG/DL (0.6-1.3); GFR ESTIMATE (CALCULATED) > 59 mL/min/; GLUCOSE 154 mg/dL (70-99); SODIUM 138 MEQ/L (136-147); UREA NITROGEN (BUN) 11 mg/dL (9-23)
[2017-12-08] MEDS ORDERED: LASIX40 MG PO (09:06)
[2017-12-08] MEDS ORDERED: KEFLEX500 MG PO (09:06)
[2017-12-08 09:18] VITALS: BP 111/83
== END 2017-12-08 09:19 | disposition home or self-care (01) ==
LOC: EME 05:58
PROVIDERS: Emergency Medicine
DX: R60.0 Localized edema (principal); L03.116 Cellulitis of left lower limb; J44.9 Chronic obstructive pulmonary disease, unspecified; Z99.81 Dependence on supplemental oxygen; F17.210 Nicotine dependence, cigarettes, uncomplicated; E78.5 Hyperlipidemia, unspecified; F43.10 Post-traumatic stress disorder, unspecified; F31.9 Bipolar disorder, unspecified; Z88.0 Allergy status to penicillin; Z88.5 Allergy status to narcotic agent
CPT/HCPCS: 71045; 80048; 83880; 85025; 94640; 99281; 99284

== ENCOUNTER 2017-12-17 23:04 | Emergency (ER) | payer OTHER ==
[~2017-12-17] VITALS: Ht 160 cm; Wt 92.4 kg
[~2017-12-17 23:04] MED LIST changes: +LASIX40 MG PO
[2017-12-17 23:39] LABS: APPEARANCE SL.HAZY ((CLEAR)); BILIRUBIN NEGATIVE; BLOOD SMALL; COLOR YELLOW ((YELLOW)); GLUCOSE (STRIP) NEGATIVE; KETONES NEGATIVE; LEUKOCYTES TRACE; NITRITE NEGATIVE; PROTEIN (STRIP) NEGATIVE; SPECIFIC GRAVITY 1.012 (1.000-1.030); UROBILINOGEN 0.2 MG/DL (0.2-1.0)
[2017-12-17 23:58] LABS: BACTERIA 1+ /HPF; EPITHELIAL CELLS 1+ /HPF; RED BLOOD CELLS 0-5 /HPF (0-5); UCUL ADDED? YES
[2017-12-18] LABS: MUCUS NONE SEEN /LPF
[2017-12-18 00:07] LABS: HEMATOCRIT 39.1 % (36.0-46.0); HEMOGLOBIN 13.5 G/DL (11.9-15.5); MCH 30.8 PG (29.0-34.0); MCHC 34.5 G/DL (30.0-36.0); MCV 89.3 FL (83-99); PLATELET COUNT 203 K/uL (156-360); RBC DIS.WIDTH-CV 12.5 % (11.8-14.6); RBC DIS.WIDTH-SD 40.7 % (39-53); RED BLOOD COUNT 4.38 M/uL (3.80-5.20); WHITE BLOOD COUNT 6.4 K/uL (4.1-10.2)
[2017-12-18 00:18] LABS: D-DIMER ELISA < 150.00 ng/mLDDU (<230)
[2017-12-18 00:21] LABS: ALBUMIN 4.3 g/dL (3.2-4.8); CHLORIDE 100 mEq/L (99-109); POTASSIUM 4.1 mEq/L (3.7-5.4); SODIUM 139 mEq/L (136-147)
[2017-12-18 00:23] LABS: GLUCOSE 90 mg/dL (70-99)
[2017-12-18 00:24] LABS: TOTAL PROTEIN 6.7 g/dL (6.4-8.3)
[2017-12-18 00:25] LABS: TOTAL BILIRUBIN 0.5 mg/dL (0.0-1.0)
[2017-12-18 00:27] LABS: ALKALINE PHOSPHATASE 71 IU/L (3-129); CREATININE 0.7 mg/dL (0.6-1.3); GFR ESTIMATE (CALCULATED) > 59 mL/min/
[2017-12-18 00:28] LABS: UREA NITROGEN (BUN) 13 mg/dL (9-23)
[2017-12-18 00:29] LABS: AST (GOT) 27 IU/L (2-34)
[2017-12-18 00:30] LABS: ALT (GPT) 21 IU/L (3-49); LIPASE 7 U/L (1.0-51.0)
[2017-12-18] MEDS ORDERED: PROVENTIL HFA6.7 GM IH (01:10)
[2017-12-18] MEDS ORDERED: BACTRIM,SEPT1 TABLET PO (01:10)
[2017-12-18 01:27] VITALS: BP 116/73
== END 2017-12-18 01:39 | disposition home or self-care (01) ==
LOC: EME → EDBD 23:04 → EME 23:04
PROVIDERS: Emergency Medicine
DX: N30.01 Acute cystitis with hematuria (principal); B96.20 Unspecified Escherichia coli [E. coli] as the cause of diseases classified elsewhere; J44.9 Chronic obstructive pulmonary disease, unspecified; R51 Headache; L03.115 Cellulitis of right lower limb; Z99.81 Dependence on supplemental oxygen; E78.5 Hyperlipidemia, unspecified; R73.03 Prediabetes; F32.9 Major depressive disorder, single episode, unspecified; F31.9 Bipolar disorder, unspecified; F43.10 Post-traumatic stress disorder, unspecified; F25.9 Schizoaffective disorder, unspecified; F17.200 Nicotine dependence, unspecified, uncomplicated; Z87.19 Personal history of other diseases of the digestive system; Z91.5 Personal history of self-harm; Z88.5 Allergy status to narcotic agent; Z88.0 Allergy status to penicillin; Z88.1 Allergy status to other antibiotic agents
CPT/HCPCS: 71045; 80053; 81003; 82140; 82948; 83605; 83690; 83880; 85027; 85379; 87040; 87077; 87086; 87186; 93005; 94640; 99281; 99285

== ENCOUNTER 2017-12-20 11:35 | Inpatient (IN) | payer OTHER ==
[~2017-12-20] VITALS: Ht 160 cm; Wt 92.3 kg
[~2017-12-20 11:35] MED LIST changes: +BACTRIM,SEPT1 TABLET PO; +PROVENTIL HFA6.7 GM IH
[2017-12-20 12:35] LABS: BASOPHIL (%) 0.4 % (0-1); EOSINOPHIL (%) 0.5 % (0-5); HEMATOCRIT 40.2 % (36.0-46.0); IMMATURE GRANULOCYTE (%) 0.5 % (0.0-0.7); LYMPHOCYTE (%) 20.3 % (15-42); LYMPHOCYTE COUNT 1.6 K/uL (1.0-2.8); MCHC 34.8 G/DL (30.0-36.0); MCV 89.1 FL (83-99); MONOCYTE (%) 11.8 % (3-12); MONOCYTE COUNT 0.9 K/uL (0-0.8); NEUTROPHIL (%) 66.5 % (45-76); NEUTROPHIL COUNT 5.1 K/uL (1.8-6.4); PLATELET COUNT 227 K/uL (156-360); RBC DIS.WIDTH-CV 12.5 % (11.8-14.6); RBC DIS.WIDTH-SD 40.6 % (39-53); RED BLOOD COUNT 4.51 M/uL (3.80-5.20); WHITE BLOOD COUNT 7.7 K/uL (4.1-10.2)
[2017-12-20 12:48] LABS: ALBUMIN 4.4 g/dL (3.2-4.8); CHLORIDE 101 mEq/L (99-109); POTASSIUM 4.3 mEq/L (3.7-5.4); SODIUM 138 mEq/L (136-147)
[2017-12-20 12:49] LABS: MAGNESIUM 2.3 mg/dL (1.3-2.7)
[2017-12-20 12:50] LABS: GLUCOSE 100 mg/dL (70-99)
[2017-12-20 12:51] LABS: TOTAL PROTEIN 7.3 g/dL (6.4-8.3)
[2017-12-20 12:52] LABS: TOTAL BILIRUBIN 0.5 mg/dL (0.0-1.0)
[2017-12-20 12:54] LABS: ALKALINE PHOSPHATASE 73 IU/L (3-129); CREATININE 0.8 mg/dL (0.6-1.3); GFR ESTIMATE (CALCULATED) > 59 mL/min/; PHOSPHORUS 3.9 mg/dL (2.5-4.9)
[2017-12-20 12:55] LABS: UREA NITROGEN (BUN) 13 mg/dL (9-23)
[2017-12-20 12:56] LABS: AST (GOT) 33 IU/L (2-34)
[2017-12-20 12:57] LABS: ALT (GPT) 28 IU/L (3-49)
[2017-12-20 13:03] LABS: TROP-I INTERPRETATION NEGATIVE; TROPONIN-I < 0.01 ng/mL (0.0-0.30)
[2017-12-20 13:20] LABS: APPEARANCE SL.HAZY ((CLEAR)); BILIRUBIN NEGATIVE; BLOOD SMALL; COLOR YELLOW ((YELLOW)); GLUCOSE (STRIP) NEGATIVE; KETONES NEGATIVE; LEUKOCYTES NEGATIVE; NITRITE NEGATIVE; PROTEIN (STRIP) NEGATIVE; UROBILINOGEN 0.2 MG/DL (0.2-1.0)
[2017-12-20 13:26] LABS: BACTERIA RARE /HPF; EPITHELIAL CELLS 2+ /HPF; HYALINE CASTS 0-5 /LPF; MUCUS TRACE /LPF; RED BLOOD CELLS 0-5 /HPF (0-5); WHITE BLOOD CELLS 0-5 /HPF (0-5)
[2017-12-20 14:17] LABS: SERUM ETHYL ALCOHOL < 10 mg/dL
[2017-12-20 14:36] LABS: AMPHETAMINE NEGATIVE (500 ng/mL); BARBITURATES NEGATIVE (200 ng/mL); BENZODIAZEPINES PRESUMPTIVE POSITIVE (150 ng/mL); BUPRENORPHINE NEGATIVE (10 ng/mL); COCAINE NEGATIVE (150 ng/mL); METHADONE PRESUMPTIVE POSITIVE (200 ng/mL); METHAMPHETAMINE NEGATIVE (500 ng/mL); OPIATES (MORPHINE) NEGATIVE (100 ng/mL); OXYCODONE NEGATIVE (100 ng/mL); PHENCYCLIDINE NEGATIVE (25 ng/mL); PROPOXYPHENE NEGATIVE (300 ng/mL); THC CANNABINOIDS NEGATIVE (50 ng/mL); TRICYCLIC ANTIDEPRESSANTS PRESUMPTIVE POSITIVE (300 ng/mL)
[2017-12-20 15:13] LABS: BENZODIAZEPINES, URINE SCREEN Negative (200 ng/mL)
[2017-12-20] MEDS ORDERED: PROAIR HFA8.5 GM IH (16:29)
[2017-12-20] MEDS ORDERED: ALBUTEROL1.25 MG/3 IH (16:29)
[2017-12-20] MEDS ORDERED: HYDROCHLOROTH12.5 M3 PO (16:32)
[2017-12-20] MEDS ORDERED: CHANTIX1 EACH PO (16:33)
[2017-12-20 17:27] VITALS: BP 145/79
[2017-12-20 19:43] VITALS: BP 140/82
[2017-12-20 20:01] LABS: TROP-I INTERPRETATION NEGATIVE; TROPONIN-I < 0.01 ng/mL (0.0-0.30)
[2017-12-21 01:05] LABS: TROP-I INTERPRETATION NEGATIVE; TROPONIN-I < 0.01 ng/mL (0.0-0.30)
[2017-12-21 04:42] VITALS: BP 126/77
[2017-12-21 05:35] LABS: HEMATOCRIT 36.5 % (36.0-46.0); HEMOGLOBIN 12.3 G/DL (11.9-15.5); MCH 30.9 PG (29.0-34.0); MCHC 33.7 G/DL (30.0-36.0); MCV 91.7 FL (83-99); PLATELET COUNT 190 K/uL (156-360); RBC DIS.WIDTH-SD 42.4 % (39-53); RED BLOOD COUNT 3.98 M/uL (3.80-5.20); WHITE BLOOD COUNT 4.5 K/uL (4.1-10.2)
[2017-12-21 05:56] LABS: CHLORIDE 107 MEQ/L (99-109); CREATININE 0.7 MG/DL (0.6-1.3); GFR ESTIMATE (CALCULATED) > 59 mL/min/; GLUCOSE 105 mg/dL (70-99); POTASSIUM 3.8 MEQ/L (3.7-5.4); SODIUM 138 MEQ/L (136-147); UREA NITROGEN (BUN) 15 mg/dL (9-23)
[2017-12-21 07:57] VITALS: BP 121/76
[2017-12-21 09:00] VITALS: BP 125/74
[2017-12-21 12:10] VITALS: BP 129/68
[2017-12-21 19:10] VITALS: BP 140/79
[2017-12-21 23:57] VITALS: BP 177/87
[2017-12-22 04:47] VITALS: BP 135/84
[2017-12-22 09:24] VITALS: BP 136/80
[2017-12-22 11:46] VITALS: BP 125/68
[2017-12-22 15:50] VITALS: BP 128/72
[2017-12-22 19:50] VITALS: BP 138/77
[2017-12-22 23:43] VITALS: BP 129/90
[2017-12-23 03:59] VITALS: BP 171/93
[2017-12-23 07:47] VITALS: BP 134/77
[2017-12-23 11:16] VITALS: BP 138/67
[2017-12-23 16:31] VITALS: BP 134/82
[2017-12-23 19:45] VITALS: BP 144/71
[2017-12-23 23:23] VITALS: BP 156/92
[2017-12-24 03:57] VITALS: BP 145/89; BP 158/101
[2017-12-24 08:06] VITALS: BP 141/90
[2017-12-24 10:02] LABS: HEMATOCRIT 40.1 % (36.0-46.0); HEMOGLOBIN 13.6 G/DL (11.9-15.5); MCHC 33.9 G/DL (30.0-36.0); MCV 91.3 FL (83-99); PLATELET COUNT 237 K/uL (156-360); RBC DIS.WIDTH-CV 12.9 % (11.8-14.6); RBC DIS.WIDTH-SD 42.8 % (39-53); RED BLOOD COUNT 4.39 M/uL (3.80-5.20); WHITE BLOOD COUNT 9.8 K/uL (4.1-10.2)
[2017-12-24 10:55] LABS: CHLORIDE 100 MEQ/L (99-109); CREATININE 0.7 MG/DL (0.6-1.3); GFR ESTIMATE (CALCULATED) > 59 mL/min/; GLUCOSE 201 mg/dL (70-99); POTASSIUM 3.8 MEQ/L (3.7-5.4); SODIUM 139 MEQ/L (136-147); UREA NITROGEN (BUN) 16 mg/dL (9-23)
[2017-12-24 12:19] VITALS: BP 136/76
[2017-12-24 16:29] VITALS: BP 161/91
[2017-12-24 20:00] VITALS: BP 177/90
[2017-12-24 23:46] VITALS: BP 158/98
[2017-12-25 07:39] VITALS: BP 162/74
[2017-12-25 11:25] VITALS: BP 145/86
[2017-12-25 15:14] VITALS: BP 136/88
[2017-12-25 19:30] VITALS: BP 146/88
[2017-12-26 06:33] LABS: BASOPHIL (%) 0.5 % (0-1); EOSINOPHIL (%) 0 % (0-5); HEMATOCRIT 39.3 % (36.0-46.0); HEMOGLOBIN 13.2 G/DL (11.9-15.5); IMMATURE GRANULOCYTE (%) 2.1 % (0.0-0.7); LYMPHOCYTE (%) 14.3 % (15-42); LYMPHOCYTE COUNT 1.3 K/uL (1.0-2.8); MCHC 33.6 G/DL (30.0-36.0); MCV 89.3 FL (83-99); MONOCYTE (%) 6.3 % (3-12); MONOCYTE COUNT 0.6 K/uL (0-0.8); NEUTROPHIL (%) 76.8 % (45-76); NEUTROPHIL COUNT 6.8 K/uL (1.8-6.4); RBC DIS.WIDTH-CV 12.6 % (11.8-14.6); RBC DIS.WIDTH-SD 41.3 % (39-53); WHITE BLOOD COUNT 8.9 K/uL (4.1-10.2)
[2017-12-26 06:57] LABS: CHLORIDE 99 MEQ/L (99-109); CREATININE 0.7 MG/DL (0.6-1.3); GFR ESTIMATE (CALCULATED) > 59 mL/min/; GLUCOSE 131 mg/dL (70-99); POTASSIUM 4.1 MEQ/L (3.7-5.4); SODIUM 137 MEQ/L (136-147); UREA NITROGEN (BUN) 18 mg/dL (9-23)
[2017-12-26 07:00] LABS: PLAT.SUFFICIENCY ADEQUATE; PLATELET CLUMPS PRESENT - PLATELET COUNT APPEARS ADQ.; PLATELET COUNT UNABLE TO REPORT K/uL (156-360)
[2017-12-26] MEDS ORDERED: PREDNISONE20 MG PO (08:54)
== END 2017-12-26 11:44 | disposition home health service (06) | DRG 191 ==
LOC: EME 11:35 → 5WEST 16:02 → EDOF 16:02 → ENRESERV 16:04 → 5WEST 17:17 → ENPENDDIS 12-26 10:43 → 5WEST 12-26 11:44
PROVIDERS: Family Medicine; Hospitalist; Internal Medicine; Nurse Practitioner Adult Health
DX: J44.1 Chronic obstructive pulmonary disease with (acute) exacerbation (principal); F11.20 Opioid dependence, uncomplicated; E86.0 Dehydration; R25.1 Tremor, unspecified; T48.6X5A Adverse effect of antiasthmatics, initial encounter; F32.9 Major depressive disorder, single episode, unspecified; F43.10 Post-traumatic stress disorder, unspecified; F41.0 Panic disorder [episodic paroxysmal anxiety]; G89.29 Other chronic pain; K59.00 Constipation, unspecified; L29.9 Pruritus, unspecified; M79.89 Other specified soft tissue disorders; F17.200 Nicotine dependence, unspecified, uncomplicated; Z99.81 Dependence on supplemental oxygen; Z79.51 Long term (current) use of inhaled steroids; Z79.84 Long term (current) use of oral hypoglycemic drugs; Z79.899 Other long term (current) drug therapy
CPT/HCPCS: 70450; 71045; 71046; 71250; 74018; 80048; 80053; 81003; 82140; 82948; 83605; 83690; 83735; 83880; 84100; 84439; 84443; 84484; 84999; 85025; 85027; 85379; 87040; 93005; 93971; 94640; 94640 76; 94799; 99202; 99281; 99285; G0378; G0480; J0780; J1200; J1650; J2930; J7030; J7040; J7512

== ENCOUNTER 2018-01-02 20:27 | Emergency (ER) | payer OTHER ==
[~2018-01-02] VITALS: Ht 160 cm; Wt 93.8 kg
[~2018-01-02 20:27] MED LIST changes: +ALBUTEROL1.25 MG/3 IH; +CHANTIX1 EACH PO; +HYDROCHLOROTH12.5 M3 PO; +PROAIR HFA8.5 GM IH
[2018-01-02] MEDS ORDERED: PREDNISONE50 MG PO (23:12)
[2018-01-02 23:28] VITALS: BP 148/79
[2018-01-03] MEDS ORDERED: NEXIUM40 MG PO (13:13)
[2018-01-03] MEDS ORDERED: LASIX20 MG PO (13:13)
== END 2018-01-02 23:29 | disposition home or self-care (01) ==
LOC: EME → EDBD 20:27 → EME 20:27
DX: T50.905A Adverse effect of unspecified drugs, medicaments and biological substances, initial encounter (principal); R21 Rash and other nonspecific skin eruption; R42 Dizziness and giddiness; R94.31 Abnormal electrocardiogram [ECG] [EKG]; J44.9 Chronic obstructive pulmonary disease, unspecified; F17.200 Nicotine dependence, unspecified, uncomplicated; Z99.81 Dependence on supplemental oxygen; Z79.51 Long term (current) use of inhaled steroids; Z88.5 Allergy status to narcotic agent; Z88.0 Allergy status to penicillin; Z88.1 Allergy status to other antibiotic agents
CPT/HCPCS: 93005; 94640; 99281; 99285; J1100; J7512; J7644

== ENCOUNTER 2018-01-03 10:52 | Inpatient (IN) | payer OTHER ==
[~2018-01-03] VITALS: Ht 160 cm; Wt 92.1 kg
[2018-01-03 11:27] LABS: BASOPHIL (%) 0.3 % (0-1); BASOPHIL COUNT 0.1 K/uL (0-0.1); EOSINOPHIL (%) 0 % (0-5); HEMATOCRIT 41.9 % (36.0-46.0); HEMOGLOBIN 14.6 G/DL (11.9-15.5); IMMATURE GRANULOCYTE (%) 2.3 % (0.0-0.7); LYMPHOCYTE (%) 22.7 % (15-42); MCH 31.1 PG (29.0-34.0); MCHC 34.8 G/DL (30.0-36.0); MCV 89.3 FL (83-99); MONOCYTE (%) 6.7 % (3-12); MONOCYTE COUNT 1.5 K/uL (0-0.8); NEUTROPHIL COUNT 14.9 K/uL (1.8-6.4); PLATELET COUNT 345 K/uL (156-360); RBC DIS.WIDTH-CV 12.6 % (11.8-14.6); RBC DIS.WIDTH-SD 41.2 % (39-53); RED BLOOD COUNT 4.69 M/uL (3.80-5.20); WHITE BLOOD COUNT 21.9 K/uL (4.1-10.2)
[2018-01-03 11:40] LABS: ALBUMIN 4.6 g/dL (3.2-4.8)
[2018-01-03 11:41] LABS: CHLORIDE 100 mEq/L (99-109); POTASSIUM 4.4 mEq/L (3.7-5.4); SODIUM 140 mEq/L (136-147)
[2018-01-03 11:43] LABS: GLUCOSE 101 mg/dL (70-99); TOTAL PROTEIN 7.8 g/dL (6.4-8.3)
[2018-01-03 11:45] LABS: TOTAL BILIRUBIN 0.3 mg/dL (0.0-1.0)
[2018-01-03 11:46] LABS: ALKALINE PHOSPHATASE 90 IU/L (3-129)
[2018-01-03 11:47] LABS: CREATININE 0.8 mg/dL (0.6-1.3); GFR ESTIMATE (CALCULATED) > 59 mL/min/
[2018-01-03 11:48] LABS: AST (GOT) 23 IU/L (2-34); UREA NITROGEN (BUN) 11 mg/dL (9-23)
[2018-01-03 11:49] LABS: ALT (GPT) 29 IU/L (3-49)
[2018-01-03 11:50] LABS: TROP-I INTERPRETATION NEGATIVE; TROPONIN-I < 0.01 ng/mL (0.0-0.30)
[2018-01-03] MEDS ORDERED: LASIX20 MG PO (13:13)
[2018-01-03] MEDS ORDERED: NEXIUM40 MG PO (13:13)
[2018-01-03 14:57] LABS: AMPHETAMINE NEGATIVE (500 ng/mL); BARBITURATES NEGATIVE (200 ng/mL); BENZODIAZEPINES NEGATIVE (150 ng/mL); BUPRENORPHINE NEGATIVE (10 ng/mL); COCAINE NEGATIVE (150 ng/mL); METHADONE PRESUMPTIVE POSITIVE (200 ng/mL); METHAMPHETAMINE NEGATIVE (500 ng/mL); OPIATES (MORPHINE) NEGATIVE (100 ng/mL); OXYCODONE NEGATIVE (100 ng/mL); PHENCYCLIDINE NEGATIVE (25 ng/mL); PROPOXYPHENE NEGATIVE (300 ng/mL); THC CANNABINOIDS NEGATIVE (50 ng/mL); TRICYCLIC ANTIDEPRESSANTS PRESUMPTIVE POSITIVE (300 ng/mL)
[2018-01-03 15:08] LABS: SERUM ETHYL ALCOHOL < 10 mg/dL
[2018-01-03 15:13] LABS: D-DIMER ELISA < 150.00 ng/mLDDU (<230)
[2018-01-03 16:51] VITALS: BP 195/100
[2018-01-03 23:50] VITALS: BP 129/83
[2018-01-04 03:27] VITALS: BP 147/96
[2018-01-04 06:15] LABS: HEMOGLOBIN 13.1 G/DL (11.9-15.5); MCH 29.8 PG (29.0-34.0); MCHC 32.8 G/DL (30.0-36.0); MCV 90.9 FL (83-99); PLATELET COUNT 253 K/uL (156-360); RBC DIS.WIDTH-CV 12.8 % (11.8-14.6); RBC DIS.WIDTH-SD 42.7 % (39-53); WHITE BLOOD COUNT 16.7 K/uL (4.1-10.2)
[2018-01-04 06:41] LABS: CHLORIDE 103 MEQ/L (99-109); CREATININE 0.6 MG/DL (0.6-1.3); GFR ESTIMATE (CALCULATED) > 59 mL/min/; GLUCOSE 128 mg/dL (70-99); POTASSIUM 4.3 MEQ/L (3.7-5.4); SODIUM 137 MEQ/L (136-147); UREA NITROGEN (BUN) 19 mg/dL (9-23)
[2018-01-04 08:08] LABS: CREATINE KINASE 81 IU/L (1-294)
[2018-01-04 09:12] VITALS: BP 145/96
[2018-01-04 11:51] VITALS: BP 143/95
[2018-01-04 12:16] LABS: APPEARANCE SL.HAZY ((CLEAR)); BILIRUBIN NEGATIVE; BLOOD NEGATIVE; COLOR YELLOW ((YELLOW)); GLUCOSE (STRIP) NEGATIVE; KETONES NEGATIVE; LEUKOCYTES TRACE; NITRITE NEGATIVE; PROTEIN (STRIP) 30; SPECIFIC GRAVITY 1.023 (1.000-1.030); UROBILINOGEN 0.2 MG/DL (0.2-1.0)
[2018-01-04 13:10] LABS: BACTERIA NONE SEEN /HPF; EPITHELIAL CELLS NONE SEEN /HPF; MUCUS NONE SEEN /LPF; RED BLOOD CELLS 0-5 /HPF (0-5); UCUL ADDED? NO; WHITE BLOOD CELLS NONE SEEN /HPF (0-5)
[2018-01-04 16:18] VITALS: BP 136/100
[2018-01-04 21:37] VITALS: BP 175/101
[2018-01-05] VITALS (7 sets, daily range): BP systolic 113–165; BP diastolic 78–93
[2018-01-05 05:51] LABS: BASOPHIL (%) 0.3 % (0-1); EOSINOPHIL (%) 0 % (0-5); HEMATOCRIT 38.9 % (36.0-46.0); HEMOGLOBIN 12.8 G/DL (11.9-15.5); IMMATURE GRANULOCYTE (%) 1.5 % (0.0-0.7); LYMPHOCYTE (%) 8.9 % (15-42); LYMPHOCYTE COUNT 1.3 K/uL (1.0-2.8); MCH 30.5 PG (29.0-34.0); MCHC 32.9 G/DL (30.0-36.0); MCV 92.6 FL (83-99); MONOCYTE (%) 3.7 % (3-12); MONOCYTE COUNT 0.5 K/uL (0-0.8); NEUTROPHIL (%) 85.6 % (45-76); NEUTROPHIL COUNT 12.4 K/uL (1.8-6.4); PLATELET COUNT 229 K/uL (156-360); RBC DIS.WIDTH-CV 13.2 % (11.8-14.6); RBC DIS.WIDTH-SD 44.7 % (39-53); WHITE BLOOD COUNT 14.5 K/uL (4.1-10.2)
[2018-01-05 06:21] LABS: CHLORIDE 99 MEQ/L (99-109); CREATININE 0.7 MG/DL (0.6-1.3); GFR ESTIMATE (CALCULATED) > 59 mL/min/; GLUCOSE 138 mg/dL (70-99); POTASSIUM 4.2 MEQ/L (3.7-5.4); SODIUM 134 MEQ/L (136-147); UREA NITROGEN (BUN) 20 mg/dL (9-23)
[2018-01-06] VITALS (7 sets, daily range): BP systolic 122–178; BP diastolic 58–100
[2018-01-06 06:57] LABS: BASOPHIL (%) 0.3 % (0-1); BASOPHIL COUNT 0.1 K/uL (0-0.1); EOSINOPHIL (%) 0.1 % (0-5); HEMATOCRIT 39.3 % (36.0-46.0); HEMOGLOBIN 13.1 G/DL (11.9-15.5); IMMATURE GRANULOCYTE (%) 1.5 % (0.0-0.7); LYMPHOCYTE (%) 17.1 % (15-42); LYMPHOCYTE COUNT 2.5 K/uL (1.0-2.8); MCH 30.8 PG (29.0-34.0); MCHC 33.3 G/DL (30.0-36.0); MCV 92.5 FL (83-99); MONOCYTE (%) 4.9 % (3-12); MONOCYTE COUNT 0.7 K/uL (0-0.8); NEUTROPHIL (%) 76.1 % (45-76); PLATELET COUNT 222 K/uL (156-360); RBC DIS.WIDTH-CV 13.2 % (11.8-14.6); RBC DIS.WIDTH-SD 44.4 % (39-53); RED BLOOD COUNT 4.25 M/uL (3.80-5.20); WHITE BLOOD COUNT 14.5 K/uL (4.1-10.2)
[2018-01-06 07:29] LABS: CHLORIDE 101 MEQ/L (99-109); CREATININE 0.8 MG/DL (0.6-1.3); GFR ESTIMATE (CALCULATED) > 59 mL/min/; GLUCOSE 172 mg/dL (70-99); POTASSIUM 3.8 MEQ/L (3.7-5.4); SODIUM 139 MEQ/L (136-147); UREA NITROGEN (BUN) 21 mg/dL (9-23)
[2018-01-07 03:45] VITALS: BP 140/82
[2018-01-07 06:05] LABS: BASOPHIL (%) 0.7 % (0-1); BASOPHIL COUNT 0.1 K/uL (0-0.1); EOSINOPHIL (%) 1.1 % (0-5); EOSINOPHIL COUNT 0.1 K/uL (0-0.3); HEMATOCRIT 37.6 % (36.0-46.0); HEMOGLOBIN 12.4 G/DL (11.9-15.5); IMMATURE GRANULOCYTE (%) 2.2 % (0.0-0.7); LYMPHOCYTE (%) 25.8 % (15-42); LYMPHOCYTE COUNT 2.8 K/uL (1.0-2.8); MCH 30.5 PG (29.0-34.0); MCV 92.4 FL (83-99); MONOCYTE (%) 9.7 % (3-12); NEUTROPHIL (%) 60.5 % (45-76); NEUTROPHIL COUNT 6.5 K/uL (1.8-6.4); PLATELET COUNT 208 K/uL (156-360); RBC DIS.WIDTH-CV 13.3 % (11.8-14.6); RBC DIS.WIDTH-SD 45.1 % (39-53); RED BLOOD COUNT 4.07 M/uL (3.80-5.20); WHITE BLOOD COUNT 10.7 K/uL (4.1-10.2)
[2018-01-07 06:29] LABS: CHLORIDE 100 MEQ/L (99-109); CREATININE 0.8 MG/DL (0.6-1.3); GFR ESTIMATE (CALCULATED) > 59 mL/min/; GLUCOSE 86 mg/dL (70-99); POTASSIUM 3.7 MEQ/L (3.7-5.4); SODIUM 140 MEQ/L (136-147); UREA NITROGEN (BUN) 22 mg/dL (9-23)
[2018-01-07 08:06] VITALS: BP 127/88
[2018-01-07 09:16] LABS: ALBUMIN 3.9 G/DL (3.2-4.8); ALKALINE PHOSPHATASE 53 IU/L (3-129); ALT (GPT) 16 IU/L (3-49); AST (GOT) 11 IU/L (2-34); DIRECT BILIRUBIN 0.1 mg/dL (0.0-0.3); TOTAL BILIRUBIN 0.3 MG/DL (0.0-1.0); TOTAL PROTEIN 6.1 G/DL (6.4-8.3)
[2018-01-07 11:32] VITALS: BP 114/71
[2018-01-07 20:00] VITALS: BP 165/72
[2018-01-07 23:50] VITALS: BP 128/73
[2018-01-08 03:55] VITALS: BP 140/74
[2018-01-08 08:24] VITALS: BP 132/70
[2018-01-08 10:18] LABS: BASOPHIL (%) 0.5 % (0-1); BASOPHIL COUNT 0.1 K/uL (0-0.1); EOSINOPHIL (%) 1.4 % (0-5); EOSINOPHIL COUNT 0.1 K/uL (0-0.3); HEMATOCRIT 38.2 % (36.0-46.0); LYMPHOCYTE COUNT 3.1 K/uL (1.0-2.8); MCH 31.6 PG (29.0-34.0); MCV 92.7 FL (83-99); MONOCYTE (%) 7.3 % (3-12); MONOCYTE COUNT 0.7 K/uL (0-0.8); NEUTROPHIL (%) 57.8 % (45-76); NEUTROPHIL COUNT 5.7 K/uL (1.8-6.4); PLATELET COUNT 183 K/uL (156-360); RBC DIS.WIDTH-CV 13.2 % (11.8-14.6); RBC DIS.WIDTH-SD 45.1 % (39-53); RED BLOOD COUNT 4.12 M/uL (3.80-5.20); WHITE BLOOD COUNT 9.9 K/uL (4.1-10.2)
[2018-01-08 10:46] LABS: CHLORIDE 97 MEQ/L (99-109); CREATININE 0.8 MG/DL (0.6-1.3); GFR ESTIMATE (CALCULATED) > 59 mL/min/; POTASSIUM 3.6 MEQ/L (3.7-5.4); SODIUM 138 MEQ/L (136-147); UREA NITROGEN (BUN) 20 mg/dL (9-23)
[2018-01-08 10:47] LABS: GLUCOSE 177 mg/dL (70-99)
[2018-01-08 11:56] VITALS: BP 141/67
[2018-01-08 16:47] VITALS: BP 147/88
[2018-01-08 23:21] VITALS: BP 144/74
[2018-01-09 03:44] VITALS: BP 153/70
[2018-01-09 07:14] LABS: BASOPHIL (%) 0.8 % (0-1); BASOPHIL COUNT 0.1 K/uL (0-0.1); EOSINOPHIL (%) 1.3 % (0-5); EOSINOPHIL COUNT 0.1 K/uL (0-0.3); HEMATOCRIT 38.1 % (36.0-46.0); HEMOGLOBIN 12.4 G/DL (11.9-15.5); IMMATURE GRANULOCYTE (%) 2.2 % (0.0-0.7); LYMPHOCYTE (%) 30.9 % (15-42); MCH 29.7 PG (29.0-34.0); MCHC 32.5 G/DL (30.0-36.0); MCV 91.4 FL (83-99); MONOCYTE (%) 9.4 % (3-12); MONOCYTE COUNT 0.9 K/uL (0-0.8); NEUTROPHIL (%) 55.4 % (45-76); NEUTROPHIL COUNT 5.3 K/uL (1.8-6.4); PLATELET COUNT 168 K/uL (156-360); RBC DIS.WIDTH-SD 43.9 % (39-53); RED BLOOD COUNT 4.17 M/uL (3.80-5.20); WHITE BLOOD COUNT 9.6 K/uL (4.1-10.2)
[2018-01-09 07:37] VITALS: BP 125/68
[2018-01-09 07:45] LABS: CHLORIDE 100 MEQ/L (99-109); CREATININE 0.8 MG/DL (0.6-1.3); GFR ESTIMATE (CALCULATED) > 59 mL/min/; POTASSIUM 4.2 MEQ/L (3.7-5.4); SODIUM 142 MEQ/L (136-147); UREA NITROGEN (BUN) 18 mg/dL (9-23)
[2018-01-09 07:48] LABS: GLUCOSE 85 mg/dL (70-99)
[2018-01-09 11:47] VITALS: BP 137/86
[2018-01-09 19:00] VITALS: BP 132/77
[2018-01-10 00:27] VITALS: BP 116/65
[2018-01-10 06:08] LABS: BASOPHIL (%) 0.6 % (0-1); BASOPHIL COUNT 0.1 K/uL (0-0.1); EOSINOPHIL (%) 1.1 % (0-5); EOSINOPHIL COUNT 0.1 K/uL (0-0.3); HEMATOCRIT 36.6 % (36.0-46.0); IMMATURE GRANULOCYTE (%) 2.1 % (0.0-0.7); LYMPHOCYTE (%) 23.5 % (15-42); LYMPHOCYTE COUNT 2.7 K/uL (1.0-2.8); MCH 30.2 PG (29.0-34.0); MCHC 32.8 G/DL (30.0-36.0); MCV 92.2 FL (83-99); MONOCYTE COUNT 1.2 K/uL (0-0.8); NEUTROPHIL (%) 62.7 % (45-76); NEUTROPHIL COUNT 7.2 K/uL (1.8-6.4); PLATELET COUNT 187 K/uL (156-360); RBC DIS.WIDTH-CV 12.9 % (11.8-14.6); RBC DIS.WIDTH-SD 43.6 % (39-53); RED BLOOD COUNT 3.97 M/uL (3.80-5.20); WHITE BLOOD COUNT 11.5 K/uL (4.1-10.2)
[2018-01-10 06:31] LABS: CHLORIDE 98 MEQ/L (99-109); CREATININE 0.7 MG/DL (0.6-1.3); GFR ESTIMATE (CALCULATED) > 59 mL/min/; POTASSIUM 3.6 MEQ/L (3.7-5.4); SODIUM 139 MEQ/L (136-147); UREA NITROGEN (BUN) 18 mg/dL (9-23)
[2018-01-10 06:34] LABS: GLUCOSE 111 mg/dL (70-99)
[2018-01-10 06:55] VITALS: BP 116/67
[2018-01-10 11:59] VITALS: BP 125/76
[2018-01-10 16:40] VITALS: BP 132/71
[2018-01-10 19:45] VITALS: BP 137/87
[2018-01-10 23:59] VITALS: BP 135/95
[2018-01-11 03:41] VITALS: BP 131/84
[2018-01-11] MEDS ORDERED: LEVOFLOXACIN750 MG PO (08:39)
[2018-01-11] MEDS ORDERED: PREDNISONE10 MG PO (08:43)
== END 2018-01-11 10:16 | disposition home or self-care (01) | DRG 872 ==
LOC: EME 10:52 → 5WEST 13:36 → EDOF 13:36 → ENRESERV 13:38 → EDOF 14:22 → ENRESERV 14:59 → 5WEST 16:48
PROVIDERS: Emergency Medicine; Internal Medicine; Physician Assistant
PROC: 0DB68ZX Excision of Stomach, Via Natural or Artificial Opening Endoscopic, Diagnostic (ICD-10-PCS; principal; 2018-01-09)
PROC: 0DJ08ZZ Inspection of Upper Intestinal Tract, Via Natural or Artificial Opening Endoscopic (ICD-10-PCS; principal; 2018-01-09)
PROC: B24BZZ4 Ultrasonography of Heart with Aorta, Transesophageal (ICD-10-PCS; principal; 2018-01-09)
DX: A40.9 Streptococcal sepsis, unspecified (principal); J44.1 Chronic obstructive pulmonary disease with (acute) exacerbation; J96.10 Chronic respiratory failure, unspecified whether with hypoxia or hypercapnia; Z99.81 Dependence on supplemental oxygen; T78.40XA Allergy, unspecified, initial encounter; L53.9 Erythematous condition, unspecified; R00.0 Tachycardia, unspecified; R25.1 Tremor, unspecified; F25.9 Schizoaffective disorder, unspecified; F11.20 Opioid dependence, uncomplicated; K56.7 Ileus, unspecified; K44.9 Diaphragmatic hernia without obstruction or gangrene; K29.60 Other gastritis without bleeding; K22.4 Dyskinesia of esophagus; K83.8 Other specified diseases of biliary tract; E78.5 Hyperlipidemia, unspecified; K21.9 Gastro-esophageal reflux disease without esophagitis; K76.0 Fatty (change of) liver, not elsewhere classified; E66.9 Obesity, unspecified; G89.4 Chronic pain syndrome; M54.5 Low back pain; M06.9 Rheumatoid arthritis, unspecified; Z68.35 Body mass index [BMI] 35.0-35.9, adult; F31.9 Bipolar disorder, unspecified; F17.210 Nicotine dependence, cigarettes, uncomplicated; Z88.0 Allergy status to penicillin; Z87.440 Personal history of urinary (tract) infections; Z87.01 Personal history of pneumonia (recurrent); Z79.51 Long term (current) use of inhaled steroids; Z79.899 Other long term (current) drug therapy; Z90.710 Acquired absence of both cervix and uterus; Z82.3 Family history of stroke; Z82.49 Family history of ischemic heart disease and other diseases of the circulatory system
CPT/HCPCS: 71045; 71260; 74018; 74019; 74177; 76937; 80048; 80053; 80076; 80202; 80306 90; 81003; 82550; 84484; 85025; 85027; 85379; 85610; 87040; 87077; 87186; 87801; 88305; 88342 TC; 93005; 93306; 93312; 93325; 94640; 94640 76; 94799; 99202; 99281; 99285; G0378; G0480; J0360; J1100; J1200; J1650; J2060; J2920; J2930; J3370; J7030; J7512; J7644; S0028

== ENCOUNTER 2018-01-13 19:04 | Emergency (ER) | payer OTHER ==
[~2018-01-13] VITALS: Ht 160 cm; Wt 90.1 kg
[~2018-01-13 19:04] MED LIST changes: +LASIX20 MG PO; +LEVOFLOXACIN750 MG PO; +PREDNISONE10 MG PO
[2018-01-13] MEDS ORDERED: ATIVAN1 MG PO (19:35)
[2018-01-13 20:15] LABS: HEMATOCRIT 38.3 % (36.0-46.0); MCH 31.1 PG (29.0-34.0); MCHC 33.9 G/DL (30.0-36.0); MCV 91.6 FL (83-99); PLATELET COUNT 225 K/uL (156-360); RBC DIS.WIDTH-CV 13.2 % (11.8-14.6); RBC DIS.WIDTH-SD 44.6 % (39-53); RED BLOOD COUNT 4.18 M/uL (3.80-5.20); WHITE BLOOD COUNT 8.4 K/uL (4.1-10.2)
[2018-01-13 20:27] LABS: ALBUMIN 4.1 g/dL (3.2-4.8); CHLORIDE 99 mEq/L (99-109); SODIUM 140 mEq/L (136-147)
[2018-01-13 20:29] LABS: GLUCOSE 85 mg/dL (70-99)
[2018-01-13 20:30] LABS: TOTAL PROTEIN 6.6 g/dL (6.4-8.3)
[2018-01-13 20:31] LABS: TOTAL BILIRUBIN 0.9 mg/dL (0.0-1.0)
[2018-01-13 20:33] LABS: ALKALINE PHOSPHATASE 58 IU/L (3-129); CREATININE 0.9 mg/dL (0.6-1.3); GFR ESTIMATE (CALCULATED) > 59 mL/min/
[2018-01-13 20:34] LABS: UREA NITROGEN (BUN) 21 mg/dL (9-23)
[2018-01-13 20:35] LABS: AST (GOT) 19 IU/L (2-34)
[2018-01-13 20:36] LABS: ALT (GPT) 23 IU/L (3-49)
[2018-01-13 22:23] VITALS: BP 121/79
== END 2018-01-13 22:24 | disposition home or self-care (01) ==
LOC: EME → EDBD 19:04 → EME 19:04
PROVIDERS: Emergency Medicine Emergency Medical Services
DX: R51 Headache (principal); R25.9 Unspecified abnormal involuntary movements; F41.9 Anxiety disorder, unspecified; F31.9 Bipolar disorder, unspecified; F20.9 Schizophrenia, unspecified; J44.9 Chronic obstructive pulmonary disease, unspecified; F17.200 Nicotine dependence, unspecified, uncomplicated; Z79.51 Long term (current) use of inhaled steroids; Z79.891 Long term (current) use of opiate analgesic; Z90.710 Acquired absence of both cervix and uterus; Z88.0 Allergy status to penicillin; Z88.5 Allergy status to narcotic agent; Z88.1 Allergy status to other antibiotic agents
CPT/HCPCS: 70450; 80053; 85027; 99281; 99285; J0780; J2250

== ENCOUNTER 2018-01-19 00:18 | Inpatient (IN) | payer OTHER ==
[~2018-01-19] VITALS: Ht 160 cm; Wt 89.9 kg
[~2018-01-19 00:18] MED LIST changes: +ATIVAN1 MG PO
[2018-01-19 01:59] LABS: APPEARANCE SL.HAZY ((CLEAR)); BILIRUBIN NEGATIVE; BLOOD MODERATE; COLOR YELLOW ((YELLOW)); GLUCOSE (STRIP) NEGATIVE; KETONES NEGATIVE; LEUKOCYTES NEGATIVE; NITRITE NEGATIVE; PROTEIN (STRIP) 30; SPECIFIC GRAVITY 1.012 (1.000-1.030); UROBILINOGEN 0.2 MG/DL (0.2-1.0)
[2018-01-19 02:06] LABS: BACTERIA RARE /HPF; EPITHELIAL CELLS RARE /HPF; HYALINE CASTS 0-5 /LPF; MUCUS NONE SEEN /LPF; UCUL ADDED? NO; WHITE BLOOD CELLS 0-5 /HPF (0-5)
[2018-01-19 02:23] LABS: AMPHETAMINE NEGATIVE (500 ng/mL); BARBITURATES NEGATIVE (200 ng/mL); BENZODIAZEPINES PRESUMPTIVE POSITIVE (150 ng/mL); BUPRENORPHINE NEGATIVE (10 ng/mL); COCAINE NEGATIVE (150 ng/mL); METHADONE PRESUMPTIVE POSITIVE (200 ng/mL); METHAMPHETAMINE NEGATIVE (500 ng/mL); OPIATES (MORPHINE) NEGATIVE (100 ng/mL); OXYCODONE NEGATIVE (100 ng/mL); PHENCYCLIDINE NEGATIVE (25 ng/mL); PROPOXYPHENE NEGATIVE (300 ng/mL); THC CANNABINOIDS NEGATIVE (50 ng/mL); TRICYCLIC ANTIDEPRESSANTS PRESUMPTIVE POSITIVE (300 ng/mL)
[2018-01-19 02:34] LABS: ALBUMIN 4.1 g/dL (3.2-4.8); SODIUM 140 mEq/L (136-147)
[2018-01-19 02:36] LABS: GLUCOSE 116 mg/dL (70-99)
[2018-01-19 02:39] LABS: SERUM ETHYL ALCOHOL < 10 mg/dL
[2018-01-19 02:40] LABS: ALKALINE PHOSPHATASE 85 IU/L (3-129); CREATININE 0.7 mg/dL (0.6-1.3); GFR ESTIMATE (CALCULATED) > 59 mL/min/
[2018-01-19 02:41] LABS: UREA NITROGEN (BUN) 11 mg/dL (9-23)
[2018-01-19 02:43] LABS: ALT (GPT) 34 IU/L (3-49)
[2018-01-19 02:47] LABS: TROP-I INTERPRETATION NEGATIVE; TROPONIN-I < 0.01 ng/mL (0.0-0.30)
[2018-01-19 03:03] LABS: CHLORIDE 103 mEq/L (99-109)
[2018-01-19 03:04] LABS: POTASSIUM 5.3 mEq/L (3.7-5.4); TOTAL BILIRUBIN 0.6 mg/dL (0.0-1.0)
[2018-01-19 03:05] LABS: AST (GOT) 58 IU/L (2-34); LIPASE 1 U/L (1.0-51.0)
[2018-01-19 03:34] LABS: HEMATOCRIT 32.2 % (36.0-46.0); HEMOGLOBIN 11.1 G/DL (11.9-15.5); MCH 31.1 PG (29.0-34.0); MCHC 34.5 G/DL (30.0-36.0); MCV 90.2 FL (83-99); PLATELET COUNT 228 K/uL (156-360); RED BLOOD COUNT 3.57 M/uL (3.80-5.20); WHITE BLOOD COUNT 8.6 K/uL (4.1-10.2)
[2018-01-19 03:42] LABS: BENZODIAZEPINES, URINE SCREEN Negative (200 ng/mL)
[2018-01-19 03:48] LABS: CARBON DIOXIDE (BICARBONATE) 29.3 MEQ/L (20-31)
[2018-01-19 04:17] LABS: PCO2 53 mm Hg (35-45); PO2 148 mm Hg (80-100); pH 7.36 (7.35-7.45)
[2018-01-19 04:18] LABS: BICARBONATE 29.9 mEq/L (22-26); CARBOXY HGB 4.1 % (0-5); COMMENTS - BLOOD GASES C+NA; DEVICE HHFNC; FI02 60 %; METHEMOGLOBIN 1.4 % (0-1.5); O2 FLOW 40 L/MIN; SITE LR; TOTAL RESP RATE 20 resp/min
[2018-01-19 09:00] LABS: BASE EXCESS 7.6 mEq/L (-3 to +3); BICARBONATE 34.7 mEq/L (22-26); CARBOXY HGB 2.8 % (0-5); COMMENTS - BLOOD GASES A+C+; DEVICE HFNC; O2 FLOW 10 L/MIN; PCO2 60 mm Hg (35-45); PO2 57 mm Hg (80-100); SITE RR; TOTAL RESP RATE 21 resp/min; pH 7.37 (7.35-7.45)
[2018-01-19 10:46] LABS: TROP-I INTERPRETATION NEGATIVE; TROPONIN-I 0.01 ng/mL (0.0-0.30)
[2018-01-19 11:47] LABS: BASE EXCESS 9.5 mEq/L (-3 to +3); BICARBONATE 35.7 mEq/L (22-26); CARBOXY HGB 2.4 % (0-5); COMMENTS - BLOOD GASES A+C+; METHEMOGLOBIN 1.1 % (0-1.5); O2 FLOW 5 L/MIN; PCO2 55 mm Hg (35-45); PO2 85 mm Hg (80-100); SITE RR; pH 7.42 (7.35-7.45)
[2018-01-19 11:48] LABS: DEVICE HFNC
[2018-01-19 16:28] LABS: TROP-I INTERPRETATION NEGATIVE; TROPONIN-I 0.02 ng/mL (0.0-0.30)
[2018-01-19 20:00] VITALS: BP 160/79
[2018-01-20 00:15] VITALS: BP 154/72
[2018-01-20 02:50] VITALS: BP 155/79
[2018-01-20 05:29] LABS: HEMATOCRIT 33.5 % (36.0-46.0); HEMOGLOBIN 11.3 G/DL (11.9-15.5); MCH 30.4 PG (29.0-34.0); MCHC 33.7 G/DL (30.0-36.0); MCV 90.1 FL (83-99); PLATELET COUNT 255 K/uL (156-360); RBC DIS.WIDTH-CV 13.2 % (11.8-14.6); RBC DIS.WIDTH-SD 43.1 % (39-53); RED BLOOD COUNT 3.72 M/uL (3.80-5.20); WHITE BLOOD COUNT 8.9 K/uL (4.1-10.2)
[2018-01-20 07:30] LABS: CHLORIDE 100 MEQ/L (99-109); CREATININE 0.7 MG/DL (0.6-1.3); GFR ESTIMATE (CALCULATED) > 59 mL/min/; GLUCOSE 164 mg/dL (70-99); POTASSIUM 4.2 MEQ/L (3.7-5.4); SODIUM 137 MEQ/L (136-147); UREA NITROGEN (BUN) 17 mg/dL (9-23)
[2018-01-20 08:04] VITALS: BP 151/86
[2018-01-20] MEDS ORDERED: ADVAIR 250/501 DISK IH (11:22)
[2018-01-20] MEDS ORDERED: VOLTAREN75 MG PO (11:22)
[2018-01-20] MEDS ORDERED: ATIVAN1 MG PO (11:23)
[2018-01-20 20:15] VITALS: BP 166/80
[2018-01-21 00:02] VITALS: BP 135/82
[2018-01-21 03:13] VITALS: BP 122/86
[2018-01-21 07:17] VITALS: BP 145/90
[2018-01-21] MEDS ORDERED: PREDNISONE20 MG PO (13:50)
[2018-01-21] MEDS ORDERED: LEVOFLOXACIN500 MG PO (13:50)
== END 2018-01-21 15:22 | disposition home health service (06) | DRG 190 ==
LOC: EME → EDBD 00:18 → EME 00:18 → EDOF 07:45 → 4EAST 07:45 → ENRESERV 07:51 → 4EAST 14:01 → ENRESERV 01-21 08:22 → CANRESERV 01-21 11:46 → 4EAST 01-21 15:22
PROVIDERS: Emergency Medicine; Hospitalist
PROC: 5A09357 Assistance with Respiratory Ventilation, Less than 24 Consecutive Hours, Continuous Positive Airway Pressure (ICD-10-PCS; principal; 2018-01-19)
DX: J44.1 Chronic obstructive pulmonary disease with (acute) exacerbation (principal); J96.21 Acute and chronic respiratory failure with hypoxia; Z99.81 Dependence on supplemental oxygen; F05 Delirium due to known physiological condition; J44.0 Chronic obstructive pulmonary disease with (acute) lower respiratory infection; J20.9 Acute bronchitis, unspecified; F33.9 Major depressive disorder, recurrent, unspecified; F25.9 Schizoaffective disorder, unspecified; R91.1 Solitary pulmonary nodule; G47.33 Obstructive sleep apnea (adult) (pediatric); I10 Essential (primary) hypertension; F41.9 Anxiety disorder, unspecified; F11.20 Opioid dependence, uncomplicated; G89.4 Chronic pain syndrome; F17.210 Nicotine dependence, cigarettes, uncomplicated; E66.9 Obesity, unspecified; Z68.35 Body mass index [BMI] 35.0-35.9, adult
CPT/HCPCS: 36600; 70450; 71046; 71275; 80048; 80053; 81003; 82803; 83605; 83690; 83880; 84484; 84999; 85027; 87040; 93005; 94640; 94640 76; 94660; 94760; 94799; 99202; 99281; 99285; G0480; J1200; J1630; J1644; J1940; J2060; J2930; J7120; J7512

== ENCOUNTER 2018-01-24 08:38 | Emergency (ER) | payer OTHER ==
[~2018-01-24] VITALS: Ht 160 cm; Wt 89.8 kg
[~2018-01-24 08:38] MED LIST changes: +ADVAIR 250/501 DISK IH; +VOLTAREN75 MG PO
[2018-01-24 09:22] LABS: BASOPHIL (%) 0.7 % (0-1); BASOPHIL COUNT 0.1 K/uL (0-0.1); EOSINOPHIL COUNT 0.1 K/uL (0-0.3); HEMATOCRIT 36.7 % (36.0-46.0); HEMOGLOBIN 12.6 G/DL (11.9-15.5); IMMATURE GRANULOCYTE (%) 3.4 % (0.0-0.7); LYMPHOCYTE (%) 23.4 % (15-42); LYMPHOCYTE COUNT 1.7 K/uL (1.0-2.8); MCH 30.8 PG (29.0-34.0); MCHC 34.3 G/DL (30.0-36.0); MCV 89.7 FL (83-99); MONOCYTE (%) 10.5 % (3-12); MONOCYTE COUNT 0.7 K/uL (0-0.8); NEUTROPHIL COUNT 4.3 K/uL (1.8-6.4); PLATELET COUNT 271 K/uL (156-360); RBC DIS.WIDTH-SD 42.5 % (39-53); RED BLOOD COUNT 4.09 M/uL (3.80-5.20); WHITE BLOOD COUNT 7.1 K/uL (4.1-10.2)
[2018-01-24 09:32] LABS: CHLORIDE 96 mEq/L (99-109); POTASSIUM 4.3 mEq/L (3.7-5.4); SODIUM 140 mEq/L (136-147)
[2018-01-24 09:34] LABS: GLUCOSE 100 mg/dL (70-99)
[2018-01-24 09:37] LABS: CREATININE 0.8 mg/dL (0.6-1.3); GFR ESTIMATE (CALCULATED) > 59 mL/min/; SERUM ETHYL ALCOHOL < 10 mg/dL
[2018-01-24 09:38] LABS: UREA NITROGEN (BUN) 13 mg/dL (9-23)
[2018-01-24 13:57] VITALS: BP 148/103
== END 2018-01-24 14:02 | disposition home or self-care (01) ==
LOC: EME 08:38
PROVIDERS: Emergency Medicine
DX: F41.9 Anxiety disorder, unspecified (principal); J44.9 Chronic obstructive pulmonary disease, unspecified; R53.1 Weakness; R51 Headache; R42 Dizziness and giddiness; R11.0 Nausea; K44.9 Diaphragmatic hernia without obstruction or gangrene; Z88.0 Allergy status to penicillin; Z99.81 Dependence on supplemental oxygen; Z90.710 Acquired absence of both cervix and uterus; F17.200 Nicotine dependence, unspecified, uncomplicated
CPT/HCPCS: 71045; 80048; 85025; 93005; 94640; 99281; 99285; G0480; J7030

== ENCOUNTER 2018-01-27 09:15 | Inpatient (IN) | payer OTHER ==
[~2018-01-27] VITALS: Ht 160 cm; Wt 88.0 kg
[2018-01-27 10:29] LABS: APPEARANCE CLEAR ((CLEAR)); BILIRUBIN NEGATIVE; BLOOD SMALL; COLOR YELLOW ((YELLOW)); GLUCOSE (STRIP) NEGATIVE; KETONES NEGATIVE; LEUKOCYTES TRACE; NITRITE NEGATIVE; PROTEIN (STRIP) NEGATIVE; SPECIFIC GRAVITY 1.015 (1.000-1.030)
[2018-01-27 10:36] LABS: BACTERIA NONE SEEN /HPF; CALCIUM OXALATE CRYSTALS 1+ /HPF; EPITHELIAL CELLS RARE /HPF; MUCUS TRACE /LPF; UCUL ADDED? NO; WHITE BLOOD CELLS 0-5 /HPF (0-5)
[2018-01-27 10:39] LABS: HEMATOCRIT 38.1 % (36.0-46.0); HEMOGLOBIN 13.1 G/DL (11.9-15.5); MCH 31.1 PG (29.0-34.0); MCHC 34.4 G/DL (30.0-36.0); MCV 90.5 FL (83-99); PLATELET COUNT 291 K/uL (156-360); RBC DIS.WIDTH-CV 13.2 % (11.8-14.6); RBC DIS.WIDTH-SD 43.8 % (39-53); RED BLOOD COUNT 4.21 M/uL (3.80-5.20); WHITE BLOOD COUNT 6.9 K/uL (4.1-10.2)
[2018-01-27 10:41] LABS: AMPHETAMINE NEGATIVE (500 ng/mL); COCAINE NEGATIVE (150 ng/mL); METHAMPHETAMINE NEGATIVE (500 ng/mL); OPIATES (MORPHINE) NEGATIVE (100 ng/mL); PHENCYCLIDINE NEGATIVE (25 ng/mL); THC CANNABINOIDS NEGATIVE (50 ng/mL)
[2018-01-27 10:42] LABS: BARBITURATES NEGATIVE (200 ng/mL); BENZODIAZEPINES PRESUMPTIVE POSITIVE (150 ng/mL); BUPRENORPHINE NEGATIVE (10 ng/mL); METHADONE PRESUMPTIVE POSITIVE (200 ng/mL); OXYCODONE NEGATIVE (100 ng/mL); PROPOXYPHENE NEGATIVE (300 ng/mL); TRICYCLIC ANTIDEPRESSANTS PRESUMPTIVE POSITIVE (300 ng/mL)
[2018-01-27 10:52] LABS: ALBUMIN 4.3 g/dL (3.2-4.8); CHLORIDE 102 mEq/L (99-109); POTASSIUM 4.5 mEq/L (3.7-5.4); SODIUM 139 mEq/L (136-147)
[2018-01-27 10:55] LABS: GLUCOSE 106 mg/dL (70-99); TOTAL PROTEIN 6.8 g/dL (6.4-8.3)
[2018-01-27 10:57] LABS: TOTAL BILIRUBIN 1.1 mg/dL (0.0-1.0)
[2018-01-27 10:58] LABS: ALKALINE PHOSPHATASE 153 IU/L (3-129); CREATININE 0.8 mg/dL (0.6-1.3); GFR ESTIMATE (CALCULATED) > 59 mL/min/
[2018-01-27 10:59] LABS: UREA NITROGEN (BUN) 14 mg/dL (9-23)
[2018-01-27 11:00] LABS: AST (GOT) 80 IU/L (2-34)
[2018-01-27 11:01] LABS: ALT (GPT) 104 IU/L (3-49)
[2018-01-27 11:14] LABS: BENZODIAZEPINES, URINE SCREEN Negative (200 ng/mL)
[2018-01-27 14:21] VITALS: BP 163/88
[2018-01-27 14:37] VITALS: BP 163/88
[2018-01-27 15:52] VITALS: BP 163/88
[2018-01-27 19:03] VITALS: BP 139/76
[2018-01-28 07:50] VITALS: BP 136/63
[2018-01-28 15:37] VITALS: BP 109/58
[2018-01-29 07:58] VITALS: BP 114/82
[2018-01-29 15:53] VITALS: BP 113/60
[2018-01-30 08:08] VITALS: BP 126/56
[2018-01-30 16:00] VITALS: BP 115/57
[2018-01-31 07:57] VITALS: BP 119/70
== END 2018-01-31 12:26 | disposition home or self-care (01) | DRG 885 ==
LOC: EME 09:15 → 1WEST 13:20 → EDOF 13:20 → 1WEST 13:20 → EDOF 13:48 → ENRESERV 14:04 → 1WEST 14:15
PROVIDERS: Emergency Medicine
DX: F25.9 Schizoaffective disorder, unspecified (principal); R45.851 Suicidal ideations; F11.21 Opioid dependence, in remission; J44.9 Chronic obstructive pulmonary disease, unspecified; Z99.81 Dependence on supplemental oxygen; Z91.5 Personal history of self-harm; E78.5 Hyperlipidemia, unspecified; G89.29 Other chronic pain; F19.21 Other psychoactive substance dependence, in remission; F41.9 Anxiety disorder, unspecified; R11.0 Nausea; F17.200 Nicotine dependence, unspecified, uncomplicated; Z87.01 Personal history of pneumonia (recurrent); Z91.14 Patient's other noncompliance with medication regimen; Z91.410 Personal history of adult physical and sexual abuse
CPT/HCPCS: 80053; 81003; 84999; 85027; 90839; 94640; 94640 76; 94799; 97150 GO; 97166 GO; 99202; 99281; 99285; Q0169

== ENCOUNTER 2018-02-03 07:48 | Emergency (ER) | payer OTHER ==
[~2018-02-03] VITALS: Ht 160 cm; Wt 90.0 kg
[2018-02-03 08:42] LABS: HEMATOCRIT 38.2 % (36.0-46.0); HEMOGLOBIN 13.1 G/DL (11.9-15.5); MCH 31.1 PG (29.0-34.0); MCHC 34.3 G/DL (30.0-36.0); MCV 90.7 FL (83-99); PLATELET COUNT 215 K/uL (156-360); RBC DIS.WIDTH-SD 44.8 % (39-53); RED BLOOD COUNT 4.21 M/uL (3.80-5.20); WHITE BLOOD COUNT 5.7 K/uL (4.1-10.2)
[2018-02-03 08:58] LABS: ALBUMIN 4.4 g/dL (3.2-4.8); CHLORIDE 101 mEq/L (99-109); SODIUM 136 mEq/L (136-147)
[2018-02-03 09:00] LABS: GLUCOSE 81 mg/dL (70-99); TOTAL PROTEIN 7.6 g/dL (6.4-8.3)
[2018-02-03 09:04] LABS: CREATININE 0.8 mg/dL (0.6-1.3); GFR ESTIMATE (CALCULATED) > 59 mL/min/
[2018-02-03 09:05] LABS: ALKALINE PHOSPHATASE 109 IU/L (3-129); TOTAL BILIRUBIN 0.4 mg/dL (0.0-1.0); UREA NITROGEN (BUN) 14 mg/dL (9-23)
[2018-02-03 09:07] LABS: ALT (GPT) 50 IU/L (3-49); LIPASE 15 U/L (1.0-51.0)
[2018-02-03 09:08] LABS: TROP-I INTERPRETATION NEGATIVE; TROPONIN-I < 0.01 ng/mL (0.0-0.30)
[2018-02-03 09:20] LABS: AST (GOT) 42 IU/L (2-34)
[2018-02-03 10:05] LABS: POTASSIUM 4.5 mEq/L (3.7-5.4)
[2018-02-03 12:10] LABS: TROP-I INTERPRETATION NEGATIVE; TROPONIN-I < 0.01 ng/mL (0.0-0.30)
[2018-02-03] MEDS ORDERED: VALTREX1000 MG PO (12:18)
[2018-02-03 12:32] VITALS: BP 117/77
== END 2018-02-03 12:46 | disposition home or self-care (01) ==
LOC: EME 07:48
PROVIDERS: Nurse Practitioner Family
DX: B02.9 Zoster without complications (principal); R07.9 Chest pain, unspecified; F17.200 Nicotine dependence, unspecified, uncomplicated; F31.9 Bipolar disorder, unspecified; F11.20 Opioid dependence, uncomplicated; Z99.81 Dependence on supplemental oxygen; Z88.5 Allergy status to narcotic agent; Z88.0 Allergy status to penicillin
CPT/HCPCS: 71046; 71275; 80053; 83690; 84484; 84999; 85027; 93005; 99281; 99284

== ENCOUNTER 2018-02-05 11:17 | Emergency (ER) | payer OTHER ==
[~2018-02-05] VITALS: Ht 160 cm; Wt 87.0 kg
[~2018-02-05 11:17] MED LIST changes: +VALTREX1000 MG PO
[2018-02-05 12:50] LABS: HEMATOCRIT 35.1 % (36.0-46.0); MCH 31.1 PG (29.0-34.0); MCHC 34.2 G/DL (30.0-36.0); MCV 90.9 FL (83-99); PLATELET COUNT 179 K/uL (156-360); RBC DIS.WIDTH-CV 13.6 % (11.8-14.6); RBC DIS.WIDTH-SD 45.8 % (39-53); RED BLOOD COUNT 3.86 M/uL (3.80-5.20)
[2018-02-05 13:21] LABS: ALBUMIN 3.9 G/DL (3.2-4.8); ALKALINE PHOSPHATASE 75 IU/L (3-129); ALT (GPT) 25 IU/L (3-49); AST (GOT) 18 IU/L (2-34); CHLORIDE 105 MEQ/L (99-109); CREATININE 0.9 MG/DL (0.6-1.3); GFR ESTIMATE (CALCULATED) > 59 mL/min/; GLUCOSE 94 mg/dL (70-99); POTASSIUM 4.4 MEQ/L (3.7-5.4); SODIUM 136 MEQ/L (136-147); TOTAL BILIRUBIN 0.5 MG/DL (0.0-1.0); TOTAL PROTEIN 6.6 G/DL (6.4-8.3); UREA NITROGEN (BUN) 11 mg/dL (9-23)
[2018-02-05 14:09] LABS: APPEARANCE SL.HAZY ((CLEAR)); BILIRUBIN NEGATIVE; BLOOD NEGATIVE; COLOR YELLOW ((YELLOW)); GLUCOSE (STRIP) NEGATIVE; KETONES NEGATIVE; LEUKOCYTES TRACE; NITRITE NEGATIVE; PROTEIN (STRIP) NEGATIVE; SPECIFIC GRAVITY 1.015 (1.000-1.030)
[2018-02-05 14:12] LABS: BACTERIA NONE SEEN /HPF; EPITHELIAL CELLS 1+ /HPF; MUCUS TRACE /LPF; RED BLOOD CELLS 0-5 /HPF (0-5); UCUL ADDED? NO; WHITE BLOOD CELLS 0-5 /HPF (0-5)
[2018-02-05 14:19] LABS: AMPHETAMINE NEGATIVE (500 ng/mL); BENZODIAZEPINES NEGATIVE (150 ng/mL); COCAINE NEGATIVE (150 ng/mL); METHAMPHETAMINE NEGATIVE (500 ng/mL); OPIATES (MORPHINE) NEGATIVE (100 ng/mL); PHENCYCLIDINE NEGATIVE (25 ng/mL); THC CANNABINOIDS NEGATIVE (50 ng/mL)
[2018-02-05 14:20] LABS: BARBITURATES NEGATIVE (200 ng/mL); BUPRENORPHINE NEGATIVE (10 ng/mL); METHADONE PRESUMPTIVE POSITIVE (200 ng/mL); OXYCODONE NEGATIVE (100 ng/mL); PROPOXYPHENE NEGATIVE (300 ng/mL); TRICYCLIC ANTIDEPRESSANTS PRESUMPTIVE POSITIVE (300 ng/mL)
[2018-02-05 16:40] LABS: TROP-I INTERPRETATION NEGATIVE
[2018-02-05 18:03] LABS: TROP-I INTERPRETATION NEGATIVE; TROPONIN-I < 0.01 ng/mL (0.0-0.30)
[2018-02-05 18:35] VITALS: BP 125/89
== END 2018-02-05 18:45 | disposition home or self-care (01) ==
LOC: EME → EDBD 11:17 → EME 18:45
PROVIDERS: Emergency Medicine
DX: F41.9 Anxiety disorder, unspecified (principal); F11.20 Opioid dependence, uncomplicated; R06.00 Dyspnea, unspecified; Z99.81 Dependence on supplemental oxygen; F17.200 Nicotine dependence, unspecified, uncomplicated; F31.9 Bipolar disorder, unspecified; Z88.5 Allergy status to narcotic agent; Z88.0 Allergy status to penicillin
CPT/HCPCS: 71046; 80053; 81003; 83605; 84484; 85027; 87040; 93005; 99281; 99285; J7030

== ENCOUNTER 2018-02-08 07:32 | Emergency (ER) | payer OTHER ==
[~2018-02-08] VITALS: Ht 160 cm; Wt 89.4 kg
[2018-02-08 08:37] LABS: BASOPHIL (%) 0.4 % (0-1); EOSINOPHIL (%) 0.4 % (0-5); HEMATOCRIT 36.7 % (36.0-46.0); HEMOGLOBIN 12.7 G/DL (11.9-15.5); IMMATURE GRANULOCYTE (%) 1.3 % (0.0-0.7); LYMPHOCYTE COUNT 1.2 K/uL (1.0-2.8); MCHC 34.6 G/DL (30.0-36.0); MCV 89.5 FL (83-99); MONOCYTE (%) 5.7 % (3-12); MONOCYTE COUNT 0.3 K/uL (0-0.8); NEUTROPHIL (%) 66.2 % (45-76); NEUTROPHIL COUNT 3.2 K/uL (1.8-6.4); PLATELET COUNT 209 K/uL (156-360); RBC DIS.WIDTH-CV 13.4 % (11.8-14.6); RBC DIS.WIDTH-SD 43.7 % (39-53); WHITE BLOOD COUNT 4.8 K/uL (4.1-10.2)
[2018-02-08 08:48] LABS: CHLORIDE 102 mEq/L (99-109); POTASSIUM 4.3 mEq/L (3.7-5.4); SODIUM 137 mEq/L (136-147)
[2018-02-08 08:49] LABS: GLUCOSE 132 mg/dL (70-99)
[2018-02-08 08:53] LABS: CREATININE 0.8 mg/dL (0.6-1.3); GFR ESTIMATE (CALCULATED) > 59 mL/min/
[2018-02-08 08:54] LABS: UREA NITROGEN (BUN) 9 mg/dL (9-23)
[2018-02-08] MEDS ORDERED: PREDNISONE50 MG PO (11:44)
[2018-02-08] MEDS ORDERED: ATIVAN0.5 MG PO (11:44)
[2018-02-08 12:03] VITALS: BP 154/117
== END 2018-02-08 12:15 | disposition home or self-care (01) ==
LOC: EME 07:32
PROVIDERS: Emergency Medicine
DX: J44.9 Chronic obstructive pulmonary disease, unspecified (principal); F41.9 Anxiety disorder, unspecified; F31.9 Bipolar disorder, unspecified; F17.200 Nicotine dependence, unspecified, uncomplicated; Z79.891 Long term (current) use of opiate analgesic; Z79.51 Long term (current) use of inhaled steroids; Z86.19 Personal history of other infectious and parasitic diseases; Z88.5 Allergy status to narcotic agent; Z88.0 Allergy status to penicillin; Z88.1 Allergy status to other antibiotic agents
CPT/HCPCS: 71045; 80048; 85025; 94640; 99281; 99285

== ENCOUNTER 2018-02-10 08:49 | Emergency (ER) | payer OTHER ==
[~2018-02-10] VITALS: Ht 160 cm; Wt 91.9 kg
[~2018-02-10 08:49] MED LIST changes: +ATIVAN0.5 MG PO
[2018-02-10 10:02] LABS: BASOPHIL (%) 0.7 % (0-1); EOSINOPHIL (%) 1.2 % (0-5); EOSINOPHIL COUNT 0.1 K/uL (0-0.3); HEMATOCRIT 37.6 % (36.0-46.0); HEMOGLOBIN 13.2 G/DL (11.9-15.5); IMMATURE GRANULOCYTE (%) 0.5 % (0.0-0.7); LYMPHOCYTE (%) 37.7 % (15-42); LYMPHOCYTE COUNT 2.2 K/uL (1.0-2.8); MCHC 35.1 G/DL (30.0-36.0); MCV 88.3 FL (83-99); MONOCYTE COUNT 0.6 K/uL (0-0.8); NEUTROPHIL (%) 48.9 % (45-76); NEUTROPHIL COUNT 2.9 K/uL (1.8-6.4); RBC DIS.WIDTH-CV 13.7 % (11.8-14.6); RBC DIS.WIDTH-SD 42.4 % (39-53); RED BLOOD COUNT 4.26 M/uL (3.80-5.20); WHITE BLOOD COUNT 5.8 K/uL (4.1-10.2)
[2018-02-10 10:08] LABS: INTER. NORMALIZED RATIO 1.1
[2018-02-10 10:11] LABS: CHLORIDE 103 mEq/L (99-109); POTASSIUM 4.4 mEq/L (3.7-5.4); PTT 21.8 SEC (25-37); SODIUM 139 mEq/L (136-147)
[2018-02-10 10:15] LABS: SERUM ETHYL ALCOHOL < 10 mg/dL
[2018-02-10 10:16] LABS: CREATININE 0.8 mg/dL (0.6-1.3); GFR ESTIMATE (CALCULATED) > 59 mL/min/
[2018-02-10 10:17] LABS: UREA NITROGEN (BUN) 9 mg/dL (9-23)
[2018-02-10 10:19] LABS: GLUCOSE 90 mg/dL (70-99)
[2018-02-10 10:23] LABS: TROP-I INTERPRETATION NEGATIVE; TROPONIN-I < 0.01 ng/mL (0.0-0.30)
[2018-02-10] MEDS ORDERED: VALTREX1000 MG PO (10:23)
[2018-02-10] MEDS ORDERED: PREDNISONE20 MG PO (10:23)
[2018-02-10 10:43] VITALS: BP 114/69
[2018-02-10 10:43] LABS: PLATELET COUNT 210 K/uL (156-360)
== END 2018-02-10 10:57 | disposition home or self-care (01) ==
LOC: EME → EDBD 08:49 → EME 08:49
PROVIDERS: Emergency Medicine
DX: G51.0 Bell's palsy (principal); B02.9 Zoster without complications; J44.9 Chronic obstructive pulmonary disease, unspecified; Z88.0 Allergy status to penicillin; F17.200 Nicotine dependence, unspecified, uncomplicated
CPT/HCPCS: 70450; 80048; 81003; 82150; 83690; 84484; 84702; 85025; 85610; 85730; 86850; 86900; 86901; 99281; 99284; G0480; J7512

== ENCOUNTER 2018-02-25 04:27 | Emergency (ER) | payer OTHER ==
[~2018-02-25] VITALS: Ht 160 cm; Wt 84.6 kg
[2018-02-25 06:01] LABS: HEMATOCRIT 36.4 % (36.0-46.0); HEMOGLOBIN 12.4 G/DL (11.9-15.5); MCH 31.6 PG (29.0-34.0); MCHC 34.1 G/DL (30.0-36.0); MCV 92.9 FL (83-99); PLATELET COUNT 162 K/uL (156-360); RBC DIS.WIDTH-CV 14.9 % (11.8-14.6); RBC DIS.WIDTH-SD 50.9 % (39-53); RED BLOOD COUNT 3.92 M/uL (3.80-5.20); WHITE BLOOD COUNT 6.9 K/uL (4.1-10.2)
[2018-02-25 06:14] LABS: CHLORIDE 102 mEq/L (99-109); SODIUM 139 mEq/L (136-147)
[2018-02-25 06:16] LABS: GLUCOSE 133 mg/dL (70-99)
[2018-02-25 06:20] LABS: CREATININE 0.7 mg/dL (0.6-1.3); GFR ESTIMATE (CALCULATED) > 59 mL/min/
[2018-02-25 06:21] LABS: UREA NITROGEN (BUN) 11 mg/dL (9-23)
[2018-02-25 06:28] LABS: TROP-I INTERPRETATION NEGATIVE; TROPONIN-I 0.01 ng/mL (0.0-0.30)
[2018-02-25 08:13] LABS: APPEARANCE SL.HAZY ((CLEAR)); BILIRUBIN NEGATIVE; BLOOD SMALL; COLOR YELLOW ((YELLOW)); GLUCOSE (STRIP) NEGATIVE; KETONES NEGATIVE; LEUKOCYTES SMALL; NITRITE NEGATIVE; PROTEIN (STRIP) 30; SPECIFIC GRAVITY 1.023 (1.000-1.030)
[2018-02-25 08:18] LABS: BACTERIA 1+ /HPF; EPITHELIAL CELLS 2+ /HPF; MUCUS TRACE /LPF; RED BLOOD CELLS 0-5 /HPF (0-5); UCUL ADDED? NO; WHITE BLOOD CELLS 0-5 /HPF (0-5)
[2018-02-25 08:44] VITALS: BP 139/87
== END 2018-02-25 08:53 | disposition home or self-care (01) ==
LOC: EME 04:27
PROVIDERS: Emergency Medicine
DX: J44.1 Chronic obstructive pulmonary disease with (acute) exacerbation (principal); F41.9 Anxiety disorder, unspecified; F17.200 Nicotine dependence, unspecified, uncomplicated; Z99.81 Dependence on supplemental oxygen; Z79.891 Long term (current) use of opiate analgesic; Z88.5 Allergy status to narcotic agent; Z88.0 Allergy status to penicillin
CPT/HCPCS: 71046; 80048; 81003; 83880; 84484; 85027; 93005; 94640; 99281; 99285

== ENCOUNTER 2018-02-25 12:29 | Emergency (ER) | payer OTHER ==
[~2018-02-25] VITALS: Ht 160 cm; Wt 75.0 kg
[2018-02-25 17:06] VITALS: BP 105/81
== END 2018-02-25 17:28 | disposition home or self-care (01) ==
LOC: EME 12:29
DX: J44.1 Chronic obstructive pulmonary disease with (acute) exacerbation (principal); F41.9 Anxiety disorder, unspecified; R25.1 Tremor, unspecified; Z99.81 Dependence on supplemental oxygen; F31.9 Bipolar disorder, unspecified; F17.200 Nicotine dependence, unspecified, uncomplicated; Z79.891 Long term (current) use of opiate analgesic; Z88.5 Allergy status to narcotic agent; Z88.0 Allergy status to penicillin; Z88.1 Allergy status to other antibiotic agents
CPT/HCPCS: 94640; 99281; 99284; J2250

== ENCOUNTER 2018-02-25 18:36 | Inpatient (IN) | payer OTHER ==
[~2018-02-25] VITALS: Ht 165.1 cm; Wt 89.9 kg
[2018-02-25 19:18] LABS: INTER. NORMALIZED RATIO 1.1
[2018-02-25 19:22] LABS: PTT 34.8 SEC (25-37)
[2018-02-25 19:24] LABS: HEMATOCRIT 35.9 % (36.0-46.0); HEMOGLOBIN 11.9 G/DL (11.9-15.5); MCH 32.4 PG (29.0-34.0); MCHC 33.1 G/DL (30.0-36.0); MCV 97.8 FL (83-99); NRBC (%) 0.3 /100 WBC (0-0); RBC DIS.WIDTH-CV 14.6 % (11.8-14.6); RBC DIS.WIDTH-SD 52.9 % (39-53); RED BLOOD COUNT 3.67 M/uL (3.80-5.20); WHITE BLOOD COUNT 14.3 K/uL (4.1-10.2)
[2018-02-25 19:25] LABS: AMYLASE 39 IU/L (1-118); CHLORIDE 94 mEq/L (99-109); SODIUM 137 mEq/L (136-147)
[2018-02-25 19:27] LABS: BASE EXCESS -7.8 mEq/L (-3 to +3); BICARBONATE 23.3 mEq/L (22-26); CARBOXY HGB 2.2 % (0-5); METHEMOGLOBIN 1.1 % (0-1.5); PO2 319 mm Hg (80-100)
[2018-02-25 19:27] LABS: GLUCOSE 143 mg/dL (70-99)
[2018-02-25 19:28] LABS: DEVICE VENT; FI02 100 %; MECHANICAL RATE 14 resp/min; MODE ACVC; PCO2 75 mm Hg (35-45); PEEP 5 CM/H20; SITE LB; TIDAL VOLUME 400 ML; TOTAL RESP RATE 14 resp/min
[2018-02-25 19:30] LABS: SERUM ETHYL ALCOHOL < 10 mg/dL
[2018-02-25 19:31] LABS: CREATININE 1.1 mg/dL (0.6-1.3); GFR ESTIMATE (CALCULATED) 55 mL/min/
[2018-02-25 19:32] LABS: UREA NITROGEN (BUN) 14 mg/dL (9-23)
[2018-02-25 19:33] LABS: POTASSIUM 6.5 mEq/L (3.7-5.4)
[2018-02-25 19:34] LABS: LIPASE 37 U/L (1.0-51.0); TROP-I INTERPRETATION NEGATIVE; TROPONIN-I 0.02 ng/mL (0.0-0.30)
[2018-02-25 19:48] LABS: QUANTITATIVE HCG < 4.0 MIU/ML
[2018-02-25 19:51] LABS: APPEARANCE CLEAR ((CLEAR)); BILIRUBIN NEGATIVE; BLOOD LARGE; COLOR YELLOW ((YELLOW)); GLUCOSE (STRIP) 50; KETONES NEGATIVE; LEUKOCYTES NEGATIVE; NITRITE NEGATIVE; PROTEIN (STRIP) 100; SPECIFIC GRAVITY 1.008 (1.000-1.030); UROBILINOGEN 0.2 MG/DL (0.2-1.0)
[2018-02-25 19:57] LABS: BACTERIA RARE /HPF; EPITHELIAL CELLS NONE SEEN /HPF; MUCUS TRACE /LPF; UCUL ADDED? YES
[2018-02-25 20:00] LABS: AMPHETAMINE NEGATIVE (500 ng/mL); BARBITURATES NEGATIVE (200 ng/mL); BENZODIAZEPINES NEGATIVE (150 ng/mL); BUPRENORPHINE NEGATIVE (10 ng/mL); COCAINE NEGATIVE (150 ng/mL); METHADONE PRESUMPTIVE POSITIVE (200 ng/mL); METHAMPHETAMINE NEGATIVE (500 ng/mL); OPIATES (MORPHINE) NEGATIVE (100 ng/mL); OXYCODONE NEGATIVE (100 ng/mL); PHENCYCLIDINE NEGATIVE (25 ng/mL); PROPOXYPHENE NEGATIVE (300 ng/mL); THC CANNABINOIDS NEGATIVE (50 ng/mL); TRICYCLIC ANTIDEPRESSANTS NEGATIVE (300 ng/mL)
[2018-02-25 20:20] LABS: ABS NEUTROPHIL COUNT 9.3; ANISOCYTOSIS 1+; ATYPICAL LYMPHOCYTE 5.3 %; BAND NEUTROPHILS 11.4 % (0-8.0); EOSINOPHIL ABS CT 0; HYPOCHROMASIA 1+; LYMPHOCYTES 21.1 % (15.0-45.0); METAMYELOCYTES 2.6 %; MICROCYTOSIS 1+; MONOCYTES 6.1 % (0-9.0); PLAT.SUFFICIENCY DECREASED; PLATELET COUNT 147 K/uL (156-360); POIKILOCYTOSIS 1+; SEG.NEUTROPHILS 53.5 % (46.0-76.0); SPHEROCYTES 1+
[2018-02-25 21:00] VITALS: BP 143/71; BP 151/83
[2018-02-25 22:00] VITALS: BP 142/73
[2018-02-25 22:11] LABS: O2 SATURATION (CALCULATED) 97.9 % (95-99); PCO2 64 mm Hg (35-45); PO2 87 mm Hg (80-100); pH 7.24 (7.35-7.45)
[2018-02-25 22:12] LABS: BASE EXCESS -1.4 mEq/L (-3 to +3); BICARBONATE 27.4 mEq/L (22-26)
[2018-02-25 23:00] VITALS: BP 132/80
[2018-02-25 23:20] LABS: CREATINE KINASE 10592 IU/L (1-294); POTASSIUM 4.5 MEQ/L (3.7-5.4); TRIGLYCERIDES 78 MG/DL (Normal: <150)
[2018-02-26] VITALS (21 sets, daily range): BP systolic 89–166; BP diastolic 56–86
[2018-02-26 02:24] LABS: HEMATOCRIT 39.6 % (36.0-46.0); HEMOGLOBIN 13.4 G/DL (11.9-15.5); MCHC 33.8 G/DL (30.0-36.0); MCV 94.5 FL (83-99); PLATELET COUNT 158 K/uL (156-360); RBC DIS.WIDTH-CV 14.9 % (11.8-14.6); RBC DIS.WIDTH-SD 52.1 % (39-53); RED BLOOD COUNT 4.19 M/uL (3.80-5.20)
[2018-02-26 02:27] LABS: CHLORIDE 102 mEq/L (99-109); SODIUM 139 mEq/L (136-147)
[2018-02-26 02:29] LABS: INTER. NORMALIZED RATIO 1.3
[2018-02-26 02:32] LABS: WHITE BLOOD COUNT 45.1 K/uL (4.1-10.2)
[2018-02-26 02:33] LABS: CREATININE 0.7 mg/dL (0.6-1.3); GFR ESTIMATE (CALCULATED) > 59 mL/min/; GLUCOSE 250 mg/dL (70-99); PHOSPHORUS 5.2 mg/dL (2.5-4.9); POTASSIUM 3.2 mEq/L (3.7-5.4)
[2018-02-26 02:34] LABS: UREA NITROGEN (BUN) 19 mg/dL (9-23)
[2018-02-26 02:41] LABS: TROP-I INTERPRETATION INDETERMINATE; TROPONIN-I 0.33 ng/mL (0.0-0.30)
[2018-02-26 03:06] LABS: ABS NEUTROPHIL COUNT 43.6; ATYPICAL LYMPHOCYTE 0.4 %; BAND NEUTROPHILS 9.9 % (0-8.0); BURR CELLS 1+; EOSINOPHIL ABS CT 0; MONOCYTES 2.1 % (0-9.0); PLAT.SUFFICIENCY ADEQUATE; POLYCHROMASIA 1+; TOX.VACUOLIZATION 2+
[2018-02-26 03:08] LABS: LYMPHOCYTES 0.9 % (15.0-45.0); SEG.NEUTROPHILS 86.7 % (46.0-76.0)
[2018-02-26 03:23] LABS: BASE EXCESS -4.2 mEq/L (-3 to +3); BICARBONATE 25.9 mEq/L (22-26); COMMENTS - BLOOD GASES A+; O2 SATURATION (CALCULATED) 94.6 % (95-99); PCO2 71 mm Hg (35-45); PO2 77 mm Hg (80-100); SITE ALINE; pH 7.17 (7.35-7.45)
[2018-02-26 03:24] LABS: DEVICE 980VENT; FI02 50 %; MECHANICAL RATE 26 resp/min; MODE AC; PEEP 5 CM/H20; TIDAL VOLUME 420 ML; TOTAL RESP RATE 26 resp/min
[2018-02-26 04:30] LABS: BASE EXCESS 24.2 mEq/L (-3 to +3); BICARBONATE 24.2 mEq/L (22-26); COMMENTS - BLOOD GASES A+; DEVICE 980VENT; FI02 50 %; MECHANICAL RATE 26 resp/min; MODE AC; O2 SATURATION (CALCULATED) 98.7 % (95-99); PCO2 48 mm Hg (35-45); PEEP 5 CM/H20; PO2 106 mm Hg (80-100); SITE ALINE; TOTAL RESP RATE 26 resp/min; pH 7.31 (7.35-7.45)
[2018-02-26 08:45] LABS: BASOPHIL (%) 0.2 % (0-1); BASOPHIL COUNT 0.1 K/uL (0-0.1); EOSINOPHIL (%) 0.1 % (0-5); HEMATOCRIT 37.9 % (36.0-46.0); HEMOGLOBIN 12.8 G/DL (11.9-15.5); IMMATURE GRANULOCYTE (%) 1.3 % (0.0-0.7); LYMPHOCYTE (%) 1.8 % (15-42); LYMPHOCYTE COUNT 0.5 K/uL (1.0-2.8); MCH 31.4 PG (29.0-34.0); MCHC 33.8 G/DL (30.0-36.0); MCV 93.1 FL (83-99); MONOCYTE (%) 1.5 % (3-12); MONOCYTE COUNT 0.4 K/uL (0-0.8); NEUTROPHIL (%) 95.1 % (45-76); NEUTROPHIL COUNT 27.8 K/uL (1.8-6.4); RBC DIS.WIDTH-CV 14.6 % (11.8-14.6); RBC DIS.WIDTH-SD 50.6 % (39-53); RED BLOOD COUNT 4.07 M/uL (3.80-5.20); WHITE BLOOD COUNT 29.2 K/uL (4.1-10.2)
[2018-02-26 08:50] LABS: TROP-I INTERPRETATION NEGATIVE; TROPONIN-I 0.28 ng/mL (0.0-0.30)
[2018-02-26 08:52] LABS: HEMATOLOGY COMMENT 1 SN; PLAT.SUFFICIENCY DECREASED
[2018-02-26 08:53] LABS: PLATELET COUNT 86 K/uL (156-360)
[2018-02-26 09:01] LABS: CHLORIDE 105 MEQ/L (99-109); CREATININE 0.7 MG/DL (0.6-1.3); GFR ESTIMATE (CALCULATED) > 59 mL/min/; GLUCOSE 312 mg/dL (70-99); MAGNESIUM 1.8 mg/dl (1.3-2.7); SODIUM 138 MEQ/L (136-147); UREA NITROGEN (BUN) 27 mg/dL (9-23)
[2018-02-26 09:02] LABS: POTASSIUM 2.4 MEQ/L (3.7-5.4)
[2018-02-26 09:04] LABS: INTER. NORMALIZED RATIO 1.3
[2018-02-26 10:38] LABS: SITE ALINE
[2018-02-26 10:39] LABS: COMMENTS - BLOOD GASES C+; DEVICE VENT
[2018-02-26 10:40] LABS: FI02 35 %; INSPIRATION TIME 0.7 seconds; MECHANICAL RATE 26 resp/min; MODE A/C; PCO2 49 mm Hg (35-45); PEEP 5 CM/H20; PO2 79 mm Hg (80-100); TIDAL VOLUME 420 ML; TOTAL RESP RATE 26 resp/min; pH 7.27 (7.35-7.45)
[2018-02-26 10:41] LABS: BASE EXCESS -4.7 mEq/L (-3 to +3); BICARBONATE 22.5 mEq/L (22-26); CARBOXY HGB 1.4 % (0-5)
[2018-02-26 13:06] LABS: BASOPHIL (%) 0.2 % (0-1); EOSINOPHIL (%) 0 % (0-5); HEMATOCRIT 37.6 % (36.0-46.0); HEMOGLOBIN 12.6 G/DL (11.9-15.5); IMMATURE GRANULOCYTE (%) 1.2 % (0.0-0.7); LYMPHOCYTE (%) 2.2 % (15-42); LYMPHOCYTE COUNT 0.6 K/uL (1.0-2.8); MCHC 33.5 G/DL (30.0-36.0); MCV 92.6 FL (83-99); MONOCYTE (%) 1.5 % (3-12); MONOCYTE COUNT 0.4 K/uL (0-0.8); NEUTROPHIL (%) 94.9 % (45-76); NEUTROPHIL COUNT 24.1 K/uL (1.8-6.4); PLATELET COUNT 83 K/uL (156-360); RBC DIS.WIDTH-CV 14.7 % (11.8-14.6); RBC DIS.WIDTH-SD 50.6 % (39-53); RED BLOOD COUNT 4.06 M/uL (3.80-5.20); WHITE BLOOD COUNT 25.4 K/uL (4.1-10.2)
[2018-02-26 13:32] LABS: INTER. NORMALIZED RATIO 1.3
[2018-02-26 13:35] LABS: CHLORIDE 107 MEQ/L (99-109); CREATININE 0.7 MG/DL (0.6-1.3); GFR ESTIMATE (CALCULATED) > 59 mL/min/; GLUCOSE 264 mg/dL (70-99); PHOSPHORUS 2.8 mg/dL (2.5-4.9); SODIUM 136 MEQ/L (136-147); UREA NITROGEN (BUN) 28 mg/dL (9-23)
[2018-02-26 13:51] LABS: TROP-I INTERPRETATION NEGATIVE; TROPONIN-I 0.25 ng/mL (0.0-0.30)
[2018-02-26 14:05] LABS: MAGNESIUM 2.1 mg/dl (1.3-2.7); POTASSIUM 2.9 MEQ/L (3.7-5.4)
[2018-02-26 16:33] LABS: COMMENTS - BLOOD GASES +C; SITE A-LINE
[2018-02-26 16:34] LABS: DEVICE PB980; FI02 35 %; INSPIRATION TIME 0.8 seconds; MECHANICAL RATE 26 resp/min; MODE ACVC+; PCO2 43 mm Hg (35-45); PEEP 5 CM/H20; PO2 75 mm Hg (80-100); TIDAL VOLUME 450 ML; TOTAL RESP RATE 26 resp/min; pH 7.27 (7.35-7.45)
[2018-02-26 16:35] LABS: BICARBONATE 19.7 mEq/L (22-26); CARBOXY HGB 1.4 % (0-5); METHEMOGLOBIN 1.4 % (0-1.5)
[2018-02-26 17:50] LABS: CHLORIDE 109 mEq/L (99-109); POTASSIUM 3.2 mEq/L (3.7-5.4); SODIUM 138 mEq/L (136-147)
[2018-02-26 17:52] LABS: GLUCOSE 189 mg/dL (70-99); MAGNESIUM 2.4 mg/dL (1.3-2.7)
[2018-02-26 17:53] LABS: BASOPHIL (%) 0.2 % (0-1); BASOPHIL COUNT 0.1 K/uL (0-0.1); EOSINOPHIL (%) 0.2 % (0-5); EOSINOPHIL COUNT 0.1 K/uL (0-0.3); HEMATOCRIT 37.9 % (36.0-46.0); HEMOGLOBIN 13.2 G/DL (11.9-15.5); IMMATURE GRANULOCYTE (%) 1.1 % (0.0-0.7); LYMPHOCYTE (%) 2.2 % (15-42); LYMPHOCYTE COUNT 0.6 K/uL (1.0-2.8); MCH 31.8 PG (29.0-34.0); MCHC 34.8 G/DL (30.0-36.0); MCV 91.3 FL (83-99); MONOCYTE (%) 1.8 % (3-12); MONOCYTE COUNT 0.5 K/uL (0-0.8); NEUTROPHIL (%) 94.5 % (45-76); NEUTROPHIL COUNT 24.9 K/uL (1.8-6.4); PLATELET COUNT 80 K/uL (156-360); RBC DIS.WIDTH-CV 14.6 % (11.8-14.6); RBC DIS.WIDTH-SD 49.4 % (39-53); RED BLOOD COUNT 4.15 M/uL (3.80-5.20); WHITE BLOOD COUNT 26.3 K/uL (4.1-10.2)
[2018-02-26 17:56] LABS: CREATININE 0.8 mg/dL (0.6-1.3); GFR ESTIMATE (CALCULATED) > 59 mL/min/; UREA NITROGEN (BUN) 26 mg/dL (9-23)
[2018-02-26 18:02] LABS: PHOSPHORUS 3.1 mg/dL (2.5-4.9)
[2018-02-26 18:04] LABS: INTER. NORMALIZED RATIO 1.2; TROP-I INTERPRETATION NEGATIVE
[2018-02-26 19:19] LABS: CREATINE KINASE > 100000 IU/L (1-294)
[2018-02-26 23:58] LABS: DEVICE VENT; FI02 30 %; INSPIRATION TIME 0.7 seconds; MECHANICAL RATE 26 resp/min; MODE ACVC+; PEEP 5 CM/H20; SITE ALINE; TIDAL VOLUME 450 ML; TOTAL RESP RATE 26 resp/min; pH 7.29 (7.35-7.45)
[2018-02-26 23:59] LABS: BASE EXCESS -8.1 mEq/L (-3 to +3); BICARBONATE 17.8 mEq/L (22-26); CARBOXY HGB 1.7 % (0-5); METHEMOGLOBIN 0.9 % (0-1.5); PCO2 37 mm Hg (35-45); PO2 67 mm Hg (80-100)
[2018-02-27] VITALS (11 sets, daily range): BP systolic 96–199; BP diastolic 58–99
[2018-02-27 00:29] LABS: BASOPHIL (%) 0.2 % (0-1); EOSINOPHIL (%) 0 % (0-5); HEMATOCRIT 36.2 % (36.0-46.0); HEMOGLOBIN 12.6 G/DL (11.9-15.5); IMMATURE GRANULOCYTE (%) 0.8 % (0.0-0.7); LYMPHOCYTE (%) 2.3 % (15-42); LYMPHOCYTE COUNT 0.6 K/uL (1.0-2.8); MCH 31.6 PG (29.0-34.0); MCHC 34.8 G/DL (30.0-36.0); MCV 90.7 FL (83-99); MONOCYTE (%) 2.3 % (3-12); MONOCYTE COUNT 0.6 K/uL (0-0.8); NEUTROPHIL (%) 94.4 % (45-76); NEUTROPHIL COUNT 22.2 K/uL (1.8-6.4); PLATELET COUNT 77 K/uL (156-360); RBC DIS.WIDTH-CV 14.6 % (11.8-14.6); RBC DIS.WIDTH-SD 49.1 % (39-53); RED BLOOD COUNT 3.99 M/uL (3.80-5.20); WHITE BLOOD COUNT 23.6 K/uL (4.1-10.2)
[2018-02-27 00:34] LABS: INTER. NORMALIZED RATIO 1.2
[2018-02-27 00:41] LABS: CHLORIDE 112 mEq/L (99-109); POTASSIUM 2.9 mEq/L (3.7-5.4); SODIUM 139 mEq/L (136-147)
[2018-02-27 00:43] LABS: GLUCOSE 136 mg/dL (70-99)
[2018-02-27 00:46] LABS: PHOSPHORUS 3.6 mg/dL (2.5-4.9)
[2018-02-27 00:47] LABS: CREATININE 0.7 mg/dL (0.6-1.3); GFR ESTIMATE (CALCULATED) > 59 mL/min/
[2018-02-27 00:48] LABS: UREA NITROGEN (BUN) 25 mg/dL (9-23)
[2018-02-27 00:49] LABS: TROP-I INTERPRETATION NEGATIVE; TROPONIN-I 0.12 ng/mL (0.0-0.30)
[2018-02-27 05:57] LABS: INTER. NORMALIZED RATIO 1.2
[2018-02-27 05:59] LABS: DEVICE VENT; SITE ALINE
[2018-02-27 06:00] LABS: BASOPHIL (%) 0.2 % (0-1); BASOPHIL COUNT 0.1 K/uL (0-0.1); EOSINOPHIL (%) 0 % (0-5); HEMATOCRIT 37.5 % (36.0-46.0); HEMOGLOBIN 12.5 G/DL (11.9-15.5); LYMPHOCYTE (%) 2.3 % (15-42); LYMPHOCYTE COUNT 0.6 K/uL (1.0-2.8); MCH 30.5 PG (29.0-34.0); MCHC 33.3 G/DL (30.0-36.0); MCV 91.5 FL (83-99); MONOCYTE (%) 2.3 % (3-12); MONOCYTE COUNT 0.6 K/uL (0-0.8); NEUTROPHIL (%) 94.2 % (45-76); NEUTROPHIL COUNT 24.6 K/uL (1.8-6.4); PLATELET COUNT 85 K/uL (156-360); RBC DIS.WIDTH-CV 14.9 % (11.8-14.6); WHITE BLOOD COUNT 26.1 K/uL (4.1-10.2)
[2018-02-27 06:00] LABS: BASE EXCESS -10.5 mEq/L (-3 to +3); BICARBONATE 15.7 mEq/L (22-26); CARBOXY HGB 1.8 % (0-5); FI02 30 %; INSPIRATION TIME 0.7 seconds; MECHANICAL RATE 26 resp/min; METHEMOGLOBIN 1.1 % (0-1.5); MODE ACVC+; O2 SATURATION (CALCULATED) 94.2 % (95-99); PCO2 35 mm Hg (35-45); PEEP 5 CM/H20; PO2 66 mm Hg (80-100); TIDAL VOLUME 450 ML; TOTAL RESP RATE 26 resp/min; pH 7.26 (7.35-7.45)
[2018-02-27 06:10] LABS: TROP-I INTERPRETATION NEGATIVE
[2018-02-27 06:32] LABS: CHLORIDE 113 MEQ/L (99-109); CREATININE 0.9 MG/DL (0.6-1.3); GFR ESTIMATE (CALCULATED) > 59 mL/min/; GLUCOSE 125 mg/dL (70-99); MAGNESIUM 1.9 mg/dl (1.3-2.7); POTASSIUM 3.1 MEQ/L (3.7-5.4); SODIUM 139 MEQ/L (136-147); UREA NITROGEN (BUN) 25 mg/dL (9-23)
[2018-02-27 06:36] LABS: PHOSPHORUS 4.8 mg/dL (2.5-4.9)
[2018-02-27 12:11] LABS: BASOPHIL (%) 0.1 % (0-1); EOSINOPHIL (%) 0 % (0-5); IMMATURE GRANULOCYTE (%) 1.5 % (0.0-0.7); LYMPHOCYTE COUNT 0.7 K/uL (1.0-2.8); MONOCYTE (%) 2.2 % (3-12); MONOCYTE COUNT 0.7 K/uL (0-0.8); NEUTROPHIL (%) 94.2 % (45-76); NEUTROPHIL COUNT 31.1 K/uL (1.8-6.4); PLATELET COUNT 102 K/uL (156-360)
[2018-02-27 12:13] LABS: INTER. NORMALIZED RATIO 1.2
[2018-02-27 12:14] LABS: HEMOGLOBIN 13.3 G/DL (11.9-15.5); MCH 31.6 PG (29.0-34.0); MCHC 34.1 G/DL (30.0-36.0); MCV 92.6 FL (83-99); RBC DIS.WIDTH-CV 15.2 % (11.8-14.6); RBC DIS.WIDTH-SD 51.9 % (39-53); RED BLOOD COUNT 4.21 M/uL (3.80-5.20)
[2018-02-27 12:15] LABS: COMMENTS - BLOOD GASES C+; DEVICE 980; FI02 30 %; INSPIRATION TIME 0.7 seconds; MECHANICAL RATE 26 resp/min; MODE AC/VC+; PEEP 5 CM/H20; SITE ALINE; TIDAL VOLUME 450 ML; TOTAL RESP RATE 26 resp/min
[2018-02-27 12:16] LABS: PCO2 39 mm Hg (35-45); PO2 63 mm Hg (80-100)
[2018-02-27 12:17] LABS: BASE EXCESS -10.1 mEq/L (-3 to +3); BICARBONATE 16.7 mEq/L (22-26); CARBOXY HGB 1.7 % (0-5); METHEMOGLOBIN 1.4 % (0-1.5); O2 SATURATION (CALCULATED) 89.8 % (95-99)
[2018-02-27 12:18] LABS: pH 7.24 (7.35-7.45)
[2018-02-27 12:27] LABS: TROP-I INTERPRETATION NEGATIVE
[2018-02-27 12:42] LABS: CHLORIDE 114 MEQ/L (99-109); GFR ESTIMATE (CALCULATED) > 59 mL/min/; GLUCOSE 138 mg/dL (70-99); MAGNESIUM 1.8 mg/dl (1.3-2.7); PHOSPHORUS 5.3 mg/dL (2.5-4.9); POTASSIUM 3.8 MEQ/L (3.7-5.4); SODIUM 143 MEQ/L (136-147); UREA NITROGEN (BUN) 25 mg/dL (9-23)
[2018-02-27 18:17] LABS: BASOPHIL (%) 0.2 % (0-1); BASOPHIL COUNT 0.1 K/uL (0-0.1); EOSINOPHIL (%) 0 % (0-5); IMMATURE GRANULOCYTE (%) 2.8 % (0.0-0.7); LYMPHOCYTE (%) 2.1 % (15-42); LYMPHOCYTE COUNT 0.6 K/uL (1.0-2.8); MONOCYTE (%) 2.6 % (3-12); MONOCYTE COUNT 0.8 K/uL (0-0.8); NEUTROPHIL (%) 92.3 % (45-76); NEUTROPHIL COUNT 28.2 K/uL (1.8-6.4); PLATELET COUNT 101 K/uL (156-360)
[2018-02-27 18:22] LABS: COMMENTS - BLOOD GASES C+; DEVICE 980; FI02 30 %; INSPIRATION TIME 0.7 seconds; MECHANICAL RATE 26 resp/min; MODE AC/VC+; PCO2 36 mm Hg (35-45); PEEP 5 CM/H20; PO2 65 mm Hg (80-100); SITE ALINE; TIDAL VOLUME 450 ML; TOTAL RESP RATE 26 resp/min
[2018-02-27 18:23] LABS: BASE EXCESS -9.6 mEq/L (-3 to +3); BICARBONATE 16.5 mEq/L (22-26); CARBOXY HGB 1.8 % (0-5); pH 7.27 (7.35-7.45)
[2018-02-27 18:23] LABS: INTER. NORMALIZED RATIO 1.2
[2018-02-27 18:40] LABS: CHLORIDE 114 MEQ/L (99-109); CREATININE 1.2 MG/DL (0.6-1.3); GFR ESTIMATE (CALCULATED) 50 mL/min/; GLUCOSE 142 mg/dL (70-99); MAGNESIUM 1.7 mg/dl (1.3-2.7); PHOSPHORUS 5.1 mg/dL (2.5-4.9); SODIUM 141 MEQ/L (136-147); UREA NITROGEN (BUN) 25 mg/dL (9-23)
[2018-02-27 18:44] LABS: MCHC 33.3 G/DL (30.0-36.0); RBC DIS.WIDTH-CV 15.5 % (11.8-14.6); RBC DIS.WIDTH-SD 53.2 % (39-53); RED BLOOD COUNT 3.87 M/uL (3.80-5.20); WHITE BLOOD COUNT 30.6 K/uL (4.1-10.2)
[2018-02-27 18:58] LABS: TROP-I INTERPRETATION NEGATIVE; TROPONIN-I 0.11 ng/mL (0.0-0.30)
[2018-02-28 00:56] LABS: BASOPHIL (%) 0.1 % (0-1); EOSINOPHIL (%) 0 % (0-5); HEMATOCRIT 34.9 % (36.0-46.0); HEMOGLOBIN 11.9 G/DL (11.9-15.5); IMMATURE GRANULOCYTE (%) 2.1 % (0.0-0.7); LYMPHOCYTE (%) 2.2 % (15-42); LYMPHOCYTE COUNT 0.6 K/uL (1.0-2.8); MCH 31.8 PG (29.0-34.0); MCHC 34.1 G/DL (30.0-36.0); MCV 93.3 FL (83-99); MONOCYTE (%) 2.5 % (3-12); MONOCYTE COUNT 0.7 K/uL (0-0.8); NEUTROPHIL (%) 93.1 % (45-76); NEUTROPHIL COUNT 25.1 K/uL (1.8-6.4); PLATELET COUNT 76 K/uL (156-360); RBC DIS.WIDTH-CV 15.5 % (11.8-14.6); RBC DIS.WIDTH-SD 53.8 % (39-53); RED BLOOD COUNT 3.74 M/uL (3.80-5.20)
[2018-02-28 01:02] LABS: INTER. NORMALIZED RATIO 1.3
[2018-02-28 01:07] LABS: CHLORIDE 115 mEq/L (99-109); POTASSIUM 3.8 mEq/L (3.7-5.4); SODIUM 142 mEq/L (136-147)
[2018-02-28 01:08] LABS: MAGNESIUM 1.9 mg/dL (1.3-2.7)
[2018-02-28 01:09] LABS: GLUCOSE 156 mg/dL (70-99)
[2018-02-28 01:13] LABS: CREATININE 1.4 mg/dL (0.6-1.3); GFR ESTIMATE (CALCULATED) 41 mL/min/; PHOSPHORUS 4.6 mg/dL (2.5-4.9)
[2018-02-28 01:14] LABS: UREA NITROGEN (BUN) 27 mg/dL (9-23)
[2018-02-28 01:20] LABS: TROP-I INTERPRETATION NEGATIVE; TROPONIN-I 0.09 ng/mL (0.0-0.30)
[2018-02-28 05:16] LABS: BASOPHIL (%) 0.1 % (0-1); EOSINOPHIL (%) 0 % (0-5); HEMATOCRIT 33.6 % (36.0-46.0); HEMOGLOBIN 11.5 G/DL (11.9-15.5); IMMATURE GRANULOCYTE (%) 1.8 % (0.0-0.7); LYMPHOCYTE (%) 2.2 % (15-42); LYMPHOCYTE COUNT 0.5 K/uL (1.0-2.8); MCH 32.1 PG (29.0-34.0); MCHC 34.2 G/DL (30.0-36.0); MCV 93.9 FL (83-99); MONOCYTE (%) 2.9 % (3-12); MONOCYTE COUNT 0.6 K/uL (0-0.8); NEUTROPHIL COUNT 19.9 K/uL (1.8-6.4); PLATELET COUNT 66 K/uL (156-360); RBC DIS.WIDTH-CV 15.6 % (11.8-14.6); RBC DIS.WIDTH-SD 54.2 % (39-53); RED BLOOD COUNT 3.58 M/uL (3.80-5.20); WHITE BLOOD COUNT 21.4 K/uL (4.1-10.2)
[2018-02-28 05:33] LABS: CHLORIDE 118 mEq/L (99-109); POTASSIUM 3.8 mEq/L (3.7-5.4); SODIUM 144 mEq/L (136-147)
[2018-02-28 05:34] LABS: MAGNESIUM 1.9 mg/dL (1.3-2.7)
[2018-02-28 05:35] LABS: GLUCOSE 163 mg/dL (70-99)
[2018-02-28 05:38] LABS: TROP-I INTERPRETATION NEGATIVE; TROPONIN-I 0.07 ng/mL (0.0-0.30)
[2018-02-28 05:38] LABS: PHOSPHORUS 4.9 mg/dL (2.5-4.9)
[2018-02-28 05:39] LABS: CREATININE 1.5 mg/dL (0.6-1.3); GFR ESTIMATE (CALCULATED) 38 mL/min/
[2018-02-28 05:40] LABS: UREA NITROGEN (BUN) 28 mg/dL (9-23)
[2018-02-28 05:44] LABS: INTER. NORMALIZED RATIO 1.2
[2018-02-28 07:41] LABS: COMMENTS - BLOOD GASES C+; DEVICE 980; FI02 30 %; SITE ALINE
[2018-02-28 07:42] LABS: CARBOXY HGB 1.6 % (0-5); INSPIRATION TIME 0.7 seconds; MECHANICAL RATE 26 resp/min; METHEMOGLOBIN 1.1 % (0-1.5); MODE AC/VC+; PCO2 39 mm Hg (35-45); PEEP 5 CM/H20; PO2 64 mm Hg (80-100); TIDAL VOLUME 450 ML; TOTAL RESP RATE 26 resp/min
[2018-02-28 07:43] LABS: BASE EXCESS -8.9 mEq/L (-3 to +3); BICARBONATE 17.5 mEq/L (22-26); pH 7.26 (7.35-7.45)
[2018-02-28 10:05] LABS: COMMENTS - BLOOD GASES C+; DEVICE 980; FI02 50 %; INSPIRATION TIME 0.7 seconds; MECHANICAL RATE 10 resp/min; MODE AC/VC+; PEEP 5 CM/H20; SITE ALINE; TIDAL VOLUME 450 ML; TOTAL RESP RATE 10 resp/min
[2018-02-28 10:06] LABS: BASE EXCESS -10.8 mEq/L (-3 to +3); BICARBONATE 20.5 mEq/L (22-26); CARBOXY HGB 1.8 % (0-5); METHEMOGLOBIN 1.2 % (0-1.5); PCO2 74 mm Hg (35-45); PO2 93 mm Hg (80-100)
[2018-02-28 10:07] LABS: pH 7.05 (7.35-7.45)
[2018-02-28 17:21] LABS: INTER. NORMALIZED RATIO 1.1
[2018-02-28 17:23] LABS: PTT 30.4 SEC (25-37)
[2018-02-28 17:32] LABS: TROP-I INTERPRETATION NEGATIVE; TROPONIN-I 0.05 ng/mL (0.0-0.30)
[2018-02-28 17:34] LABS: ALBUMIN 3.1 G/DL (3.2-4.8); ALKALINE PHOSPHATASE 108 IU/L (3-129); ALT (GPT) 439 IU/L (3-49); AST (GOT) 665 IU/L (2-34); CHLORIDE 117 MEQ/L (99-109); CREATININE 1.9 MG/DL (0.6-1.3); GFR ESTIMATE (CALCULATED) 29 mL/min/; GLUCOSE 191 mg/dL (70-99); SODIUM 146 MEQ/L (136-147); TOTAL BILIRUBIN 0.5 MG/DL (0.0-1.0); TOTAL PROTEIN 5.3 G/DL (6.4-8.3); UREA NITROGEN (BUN) 29 mg/dL (9-23)
[2018-02-28 17:38] LABS: POTASSIUM 5.4 MEQ/L (3.7-5.4)
[2018-02-28 17:58] LABS: CK-MB 205.4 ng/mL (0.0-4.9)
[2018-02-28 18:01] LABS: ALBUMIN 3.1 G/DL (3.2-4.8); ALKALINE PHOSPHATASE 102 IU/L (3-129); ALT (GPT) 446 IU/L (3-49); AST (GOT) 682 IU/L (2-34); CKMB RELATIVE INDEX 1.2 (0.0-3.9); DIRECT BILIRUBIN 0.2 mg/dL (0.0-0.3); TOTAL BILIRUBIN 0.5 MG/DL (0.0-1.0); TOTAL CK 16854 IU/L (1-294); TOTAL PROTEIN 5.3 G/DL (6.4-8.3)
[2018-02-28 18:02] LABS: CREATINE KINASE 16854 IU/L (1-294); MAGNESIUM 2.4 mg/dl (1.3-2.7)
[2018-02-28 18:02] LABS: COMMENTS - BLOOD GASES C+; DEVICE 980; FI02 50 %; INSPIRATION TIME 0.7 seconds; MECHANICAL RATE 8 resp/min; MODE AC/VC+; PEEP 5 CM/H20; SITE ALINE; TIDAL VOLUME 450 ML; TOTAL RESP RATE 8 resp/min
[2018-02-28 18:03] LABS: BASE EXCESS -9.9 mEq/L (-3 to +3); BICARBONATE 23.2 mEq/L (22-26); CARBOXY HGB 1.8 % (0-5); METHEMOGLOBIN 1.1 % (0-1.5); PO2 94 mm Hg (80-100); pH 6.96 (7.35-7.45)
[2018-02-28 18:04] LABS: PCO2 103 mm Hg (35-45)
[2018-02-28 19:59] LABS: BASE EXCESS -8.4 mEq/L (-3 to +3); BICARBONATE 19.2 mEq/L (22-26); CARBOXY HGB 1.2 % (0-5); COMMENTS - BLOOD GASES C+A+; METHEMOGLOBIN 0.9 % (0-1.5); PCO2 48 mm Hg (35-45); PO2 132 mm Hg (80-100); SITE RF A LINE
[2018-02-28 20:00] LABS: DEVICE VENTILATOR; FI02 40 %; MECHANICAL RATE 16 resp/min; MODE BILEVEL; PRES. SUPPORT 0 CM/H2O; TOTAL RESP RATE 16 resp/min
[2018-02-28 20:01] LABS: pH 7.21 (7.35-7.45)
[2018-02-28 21:11] LABS: BASE EXCESS -8.4 mEq/L (-3 to +3); BICARBONATE 18.8 mEq/L (22-26); CARBOXY HGB 1.6 % (0-5); COMMENTS - BLOOD GASES C+A+; DEVICE VENTILATOR; FI02 40 %; MECHANICAL RATE 17 resp/min; METHEMOGLOBIN 1.4 % (0-1.5); MODE BILEVEL; PCO2 45 mm Hg (35-45); PO2 137 mm Hg (80-100); SITE RF A LINE; TOTAL RESP RATE 17 resp/min
[2018-02-28 21:12] LABS: PRES. SUPPORT 0 CM/H2O
[2018-02-28 21:13] LABS: pH 7.23 (7.35-7.45)
[2018-02-28 21:55] LABS: BASOPHIL (%) 0.1 % (0-1); EOSINOPHIL (%) 0 % (0-5); HEMATOLOGY COMMENT 1 SN; HEMOGLOBIN 9.8 G/DL (11.9-15.5); IMM.PLATELET FRACTION 5.3 (1-7); LYMPHOCYTE (%) 1.9 % (15-42); LYMPHOCYTE COUNT 0.3 K/uL (1.0-2.8); MCH 31.1 PG (29.0-34.0); MCHC 31.6 G/DL (30.0-36.0); MONOCYTE (%) 4.3 % (3-12); MONOCYTE COUNT 0.6 K/uL (0-0.8); NEUTROPHIL (%) 91.7 % (45-76); NEUTROPHIL COUNT 12.5 K/uL (1.8-6.4); PLAT.SUFFICIENCY VERY DECREASED; RBC DIS.WIDTH-CV 16.1 % (11.8-14.6); RBC DIS.WIDTH-SD 58.3 % (39-53); RED BLOOD COUNT 3.15 M/uL (3.80-5.20); WHITE BLOOD COUNT 13.6 K/uL (4.1-10.2)
[2018-02-28 22:01] LABS: MCV 98.4 FL (83-99); PLATELET COUNT 46 K/uL (156-360)
[2018-03-01 00:53] LABS: BASOPHIL (%) 0.1 % (0-1); EOSINOPHIL (%) 0 % (0-5); HEMATOCRIT 29.8 % (36.0-46.0); HEMOGLOBIN 9.7 G/DL (11.9-15.5); IMMATURE GRANULOCYTE (%) 3.1 % (0.0-0.7); LYMPHOCYTE (%) 3.4 % (15-42); LYMPHOCYTE COUNT 0.5 K/uL (1.0-2.8); MCH 31.7 PG (29.0-34.0); MCHC 32.6 G/DL (30.0-36.0); MCV 97.4 FL (83-99); MONOCYTE (%) 3.7 % (3-12); MONOCYTE COUNT 0.6 K/uL (0-0.8); NEUTROPHIL (%) 89.7 % (45-76); NRBC (%) 0.1 /100 WBC (0-0); PLATELET COUNT 55 K/uL (156-360); RBC DIS.WIDTH-CV 16.3 % (11.8-14.6); RBC DIS.WIDTH-SD 58.4 % (39-53); RED BLOOD COUNT 3.06 M/uL (3.80-5.20); WHITE BLOOD COUNT 15.6 K/uL (4.1-10.2)
[2018-03-01 01:04] LABS: INTER. NORMALIZED RATIO 1.1
[2018-03-01 01:04] LABS: MAGNESIUM 1.9 mg/dL (1.3-2.7)
[2018-03-01 01:05] LABS: CHLORIDE 119 mEq/L (99-109); POTASSIUM 3.8 mEq/L (3.7-5.4); SODIUM 148 mEq/L (136-147)
[2018-03-01 01:06] LABS: TOTAL PROTEIN 4.8 g/dL (6.4-8.3)
[2018-03-01 01:06] LABS: PTT 28.2 SEC (25-37)
[2018-03-01 01:08] LABS: GLUCOSE 194 mg/dL (70-99); TOTAL BILIRUBIN 0.8 mg/dL (0.0-1.0); TOTAL PROTEIN 4.3 g/dL (6.4-8.3)
[2018-03-01 01:09] LABS: ALKALINE PHOSPHATASE 91 IU/L (3-129); PHOSPHORUS 3.8 mg/dL (2.5-4.9)
[2018-03-01 01:10] LABS: TOTAL BILIRUBIN 0.9 mg/dL (0.0-1.0)
[2018-03-01 01:11] LABS: ALKALINE PHOSPHATASE 92 IU/L (3-129); AST (GOT) 416 IU/L (2-34); DIRECT BILIRUBIN 0.7 mg/dL (0.0-0.3); GFR ESTIMATE (CALCULATED) 27 mL/min/
[2018-03-01 01:12] LABS: ALT (GPT) 359 IU/L (3-49); UREA NITROGEN (BUN) 34 mg/dL (9-23)
[2018-03-01 01:13] LABS: AST (GOT) 423 IU/L (2-34)
[2018-03-01 01:14] LABS: ALT (GPT) 365 IU/L (3-49)
[2018-03-01 01:20] LABS: TROP-I INTERPRETATION NEGATIVE; TROPONIN-I 0.04 ng/mL (0.0-0.30)
[2018-03-01 01:21] LABS: CK-MB 115.9 ng/mL (0.0-4.9)
[2018-03-01 01:24] LABS: CKMB RELATIVE INDEX 1.3 (0.0-3.9); TOTAL CK 8760 IU/L (1-294)
[2018-03-01 01:27] LABS: CREATINE KINASE 8760 IU/L (1-294)
[2018-03-01 01:53] LABS: GAMMA-GT 218 IU/L (4-73)
[2018-03-01 06:33] LABS: APPEARANCE CLOUDY ((CLEAR)); BILIRUBIN NEGATIVE; BLOOD MODERATE; COLOR YELLOW ((YELLOW)); GLUCOSE (STRIP) NEGATIVE; KETONES 5; LEUKOCYTES NEGATIVE; NITRITE NEGATIVE; PROTEIN (STRIP) NEGATIVE; SPECIFIC GRAVITY 1.006 (1.000-1.030); UROBILINOGEN 0.2 MG/DL (0.2-1.0)
[2018-03-01 07:28] LABS: BASOPHIL (%) 0.2 % (0-1); EOSINOPHIL (%) 0 % (0-5); HEMOGLOBIN 8.9 G/DL (11.9-15.5); IMMATURE GRANULOCYTE (%) 2.2 % (0.0-0.7); LYMPHOCYTE COUNT 0.6 K/uL (1.0-2.8); MCH 30.6 PG (29.0-34.0); MCHC 31.8 G/DL (30.0-36.0); MCV 96.2 FL (83-99); MONOCYTE (%) 3.6 % (3-12); MONOCYTE COUNT 0.5 K/uL (0-0.8); NEUTROPHIL COUNT 11.5 K/uL (1.8-6.4); NRBC (%) 0.2 /100 WBC (0-0); RBC DIS.WIDTH-CV 16.1 % (11.8-14.6); RBC DIS.WIDTH-SD 57.7 % (39-53); RED BLOOD COUNT 2.91 M/uL (3.80-5.20); WHITE BLOOD COUNT 12.9 K/uL (4.1-10.2)
[2018-03-01 07:34] LABS: WHITE BLOOD CELLS 0-5 /HPF (0-5)
[2018-03-01 07:35] LABS: BACTERIA 1+ /HPF; EPITHELIAL CELLS RARE /HPF; MUCUS 1+ /LPF
[2018-03-01 07:36] LABS: HYALINE CASTS 0-5 /LPF
[2018-03-01 07:50] LABS: INTER. NORMALIZED RATIO 1.1
[2018-03-01 07:52] LABS: PTT 26.6 SEC (25-37)
[2018-03-01 07:54] LABS: TROP-I INTERPRETATION NEGATIVE; TROPONIN-I 0.06 ng/mL (0.0-0.30)
[2018-03-01 07:56] LABS: IMM.PLATELET FRACTION 5.8 (1-7); PLAT.SUFFICIENCY DECREASED; PLATELET COUNT 47 K/uL (156-360)
[2018-03-01 08:03] LABS: ALBUMIN 3.2 G/DL (3.2-4.8); ALT (GPT) 266 IU/L (3-49); CHLORIDE 119 MEQ/L (99-109); CREATININE 2.2 MG/DL (0.6-1.3); GAMMA-GT 217 IU/L (4-73); GFR ESTIMATE (CALCULATED) 25 mL/min/; GLUCOSE 149 mg/dL (70-99); POTASSIUM 3.3 MEQ/L (3.7-5.4); SODIUM 148 MEQ/L (136-147); TOTAL PROTEIN 4.7 G/DL (6.4-8.3); UREA NITROGEN (BUN) 33 mg/dL (9-23)
[2018-03-01 08:04] LABS: ALKALINE PHOSPHATASE 71 IU/L (3-129); AST (GOT) 272 IU/L (2-34); TOTAL BILIRUBIN 0.7 MG/DL (0.0-1.0)
[2018-03-01 08:18] LABS: COMMENTS - BLOOD GASES C+; DEVICE VENT; FI02 40 %; MODE BILEVEL; SITE RIGHT FEM ALINE
[2018-03-01 08:19] LABS: INSPIRATION TIME 0.5 seconds; MECHANICAL RATE 17 resp/min; PCO2 35 mm Hg (35-45); TOTAL RESP RATE 17 resp/min; pH 7.29 (7.35-7.45)
[2018-03-01 08:20] LABS: BASE EXCESS -8.9 mEq/L (-3 to +3); BICARBONATE 16.8 mEq/L (22-26); METHEMOGLOBIN 1.3 % (0-1.5); PO2 186 mm Hg (80-100)
[2018-03-01 09:34] LABS: ALT (GPT) 268 IU/L (3-49); DIRECT BILIRUBIN 0.4 mg/dL (0.0-0.3); MAGNESIUM 2.4 mg/dl (1.3-2.7); TOTAL CK 4529 IU/L (1-294); TOTAL PROTEIN 4.7 G/DL (6.4-8.3)
[2018-03-01 09:35] LABS: PHOSPHORUS 2.6 mg/dL (2.5-4.9)
[2018-03-01 09:36] LABS: ALKALINE PHOSPHATASE 72 IU/L (3-129); AST (GOT) 274 IU/L (2-34); CREATINE KINASE 4529 IU/L (1-294); TOTAL BILIRUBIN 0.7 MG/DL (0.0-1.0)
[2018-03-01 09:43] LABS: COMMENTS - BLOOD GASES C+; DEVICE VENT; FI02 100 %; MECHANICAL RATE 17 resp/min; MODE BILVEL; SITE RIGHT FEM ALINE; TOTAL RESP RATE 17 resp/min
[2018-03-01 09:44] LABS: PCO2 38 mm Hg (35-45); PEEP 35 CM/H20; PO2 531 mm Hg (80-100); PRES. SUPPORT 0 CM/H2O; pH 7.29 (7.35-7.45)
[2018-03-01 09:45] LABS: BASE EXCESS -7.5 mEq/L (-3 to +3); BICARBONATE 18.3 mEq/L (22-26); CARBOXY HGB 1.2 % (0-5); METHEMOGLOBIN 1.6 % (0-1.5)
[2018-03-01 09:53] LABS: CKMB RELATIVE INDEX 1.7 (0.0-3.9)
[2018-03-01 09:54] LABS: CK-MB 79.1 ng/mL (0.0-4.9)
[2018-03-01 10:14] LABS: SITE R FEM ALINE
[2018-03-01 10:15] LABS: COMMENTS - BLOOD GASES C+; DEVICE VENT; FI02 100 %; MECHANICAL RATE 17 resp/min; MODE ACVC; PCO2 34 mm Hg (35-45); PEEP 5 CM/H20; PO2 481 mm Hg (80-100); TIDAL VOLUME 550 ML; TOTAL RESP RATE 17 resp/min; pH 7.29 (7.35-7.45)
[2018-03-01 10:16] LABS: BASE EXCESS -9.4 mEq/L (-3 to +3); BICARBONATE 16.3 mEq/L (22-26); CARBOXY HGB 0.9 % (0-5); METHEMOGLOBIN 1.6 % (0-1.5)
[2018-03-01 12:24] LABS: INTER. NORMALIZED RATIO 1.1
[2018-03-01 12:27] LABS: PTT 27.6 SEC (25-37)
[2018-03-01 12:32] LABS: BASOPHIL (%) 0.1 % (0-1); EOSINOPHIL (%) 0 % (0-5); HEMATOCRIT 27.1 % (36.0-46.0); HEMOGLOBIN 8.6 G/DL (11.9-15.5); IMMATURE GRANULOCYTE (%) 1.5 % (0.0-0.7); LYMPHOCYTE (%) 2.9 % (15-42); LYMPHOCYTE COUNT 0.4 K/uL (1.0-2.8); MCHC 31.7 G/DL (30.0-36.0); MCV 97.8 FL (83-99); MONOCYTE (%) 3.6 % (3-12); MONOCYTE COUNT 0.5 K/uL (0-0.8); NEUTROPHIL (%) 91.9 % (45-76); NRBC (%) 0.2 /100 WBC (0-0); RBC DIS.WIDTH-CV 16.3 % (11.8-14.6); RBC DIS.WIDTH-SD 58.5 % (39-53); RED BLOOD COUNT 2.77 M/uL (3.80-5.20)
[2018-03-01 12:38] LABS: TROP-I INTERPRETATION NEGATIVE; TROPONIN-I 0.04 ng/mL (0.0-0.30)
[2018-03-01 13:04] LABS: ALBUMIN 3.4 G/DL (3.2-4.8); ALKALINE PHOSPHATASE 68 IU/L (3-129); ALT (GPT) 237 IU/L (3-49); AST (GOT) 221 IU/L (2-34); CHLORIDE 122 MEQ/L (99-109); CREATININE 2.3 MG/DL (0.6-1.3); GAMMA-GT 209 IU/L (4-73); GFR ESTIMATE (CALCULATED) 23 mL/min/; GLUCOSE 143 mg/dL (70-99); SODIUM 151 MEQ/L (136-147); TOTAL BILIRUBIN 0.8 MG/DL (0.0-1.0); UREA NITROGEN (BUN) 33 mg/dL (9-23)
[2018-03-01 13:05] LABS: ALBUMIN 3.4 G/DL (3.2-4.8); ALKALINE PHOSPHATASE 67 IU/L (3-129); ALT (GPT) 242 IU/L (3-49); AST (GOT) 223 IU/L (2-34); DIRECT BILIRUBIN 0.4 mg/dL (0.0-0.3); MAGNESIUM 2.3 mg/dl (1.3-2.7); PHOSPHORUS 3.2 mg/dL (2.5-4.9); POTASSIUM 4.8 MEQ/L (3.7-5.4); TOTAL BILIRUBIN 0.8 MG/DL (0.0-1.0); TOTAL CK 3248 IU/L (1-294)
[2018-03-01 13:07] LABS: CREATINE KINASE 3248 IU/L (1-294)
[2018-03-01 13:14] LABS: IMM.PLATELET FRACTION 7.2 (1-7); PLAT.SUFFICIENCY DECREASED; PLATELET COUNT 45 K/uL (156-360)
[2018-03-01 13:39] LABS: CKMB RELATIVE INDEX 1.7 (0.0-3.9)
[2018-03-01 13:41] LABS: CK-MB 54.7 ng/mL (0.0-4.9)
[2018-03-01 13:58] LABS: COMMENTS - BLOOD GASES C+; DEVICE VENT; FI02 40 %; SITE RIGHT FEM ALINE
[2018-03-01 13:59] LABS: MECHANICAL RATE 17 resp/min; MODE BILEVEL; PCO2 45 mm Hg (35-45); PEEP 35 CM/H20; PO2 157 mm Hg (80-100); TOTAL RESP RATE 17 resp/min
[2018-03-01 14:00] LABS: BASE EXCESS -9.9 mEq/L (-3 to +3); BICARBONATE 17.6 mEq/L (22-26); CARBOXY HGB 1.4 % (0-5)
[2018-03-01 18:18] LABS: BASOPHIL (%) 0.1 % (0-1); EOSINOPHIL (%) 0 % (0-5); HEMATOCRIT 26.1 % (36.0-46.0); HEMOGLOBIN 8.3 G/DL (11.9-15.5); IMMATURE GRANULOCYTE (%) 1.3 % (0.0-0.7); LYMPHOCYTE (%) 4.2 % (15-42); LYMPHOCYTE COUNT 0.5 K/uL (1.0-2.8); MCH 31.4 PG (29.0-34.0); MCHC 31.8 G/DL (30.0-36.0); MCV 98.9 FL (83-99); MONOCYTE (%) 2.3 % (3-12); MONOCYTE COUNT 0.3 K/uL (0-0.8); NEUTROPHIL (%) 92.1 % (45-76); NEUTROPHIL COUNT 11.6 K/uL (1.8-6.4); RBC DIS.WIDTH-CV 16.5 % (11.8-14.6); RED BLOOD COUNT 2.64 M/uL (3.80-5.20); WHITE BLOOD COUNT 12.5 K/uL (4.1-10.2)
[2018-03-01 18:30] LABS: COMMENTS - BLOOD GASES C+; DEVICE VENT; FI02 40 %; MECHANICAL RATE 17 resp/min; MODE BILEVEL; PEEP 35 CM/H20; PRES. SUPPORT 0 CM/H2O; SITE RIGHT FEM ALINE; TOTAL RESP RATE 17 resp/min; pH 7.27 (7.35-7.45)
[2018-03-01 18:31] LABS: BASE EXCESS -6.8 mEq/L (-3 to +3); BICARBONATE 19.7 mEq/L (22-26); CARBOXY HGB 1.1 % (0-5); METHEMOGLOBIN 1.3 % (0-1.5); PCO2 43 mm Hg (35-45); PO2 182 mm Hg (80-100)
[2018-03-01 18:39] LABS: TROP-I INTERPRETATION NEGATIVE; TROPONIN-I 0.05 ng/mL (0.0-0.30)
[2018-03-01 18:44] LABS: INTER. NORMALIZED RATIO 1.1
[2018-03-01 18:46] LABS: PTT 25.5 SEC (25-37)
[2018-03-01 19:05] LABS: ALBUMIN 3.8 G/DL (3.2-4.8); ALKALINE PHOSPHATASE 67 IU/L (3-129); ALT (GPT) 209 IU/L (3-49); AST (GOT) 162 IU/L (2-34); CHLORIDE 124 MEQ/L (99-109); CREATININE 2.5 MG/DL (0.6-1.3); GAMMA-GT 230 IU/L (4-73); GFR ESTIMATE (CALCULATED) 21 mL/min/; GLUCOSE 141 mg/dL (70-99); POTASSIUM 4.7 MEQ/L (3.7-5.4); SODIUM 151 MEQ/L (136-147); TOTAL BILIRUBIN 0.5 MG/DL (0.0-1.0); TOTAL PROTEIN 5.4 G/DL (6.4-8.3); UREA NITROGEN (BUN) 36 mg/dL (9-23)
[2018-03-01 19:06] LABS: ALBUMIN 3.6 G/DL (3.2-4.8); ALKALINE PHOSPHATASE 68 IU/L (3-129); ALT (GPT) 206 IU/L (3-49); AST (GOT) 161 IU/L (2-34); DIRECT BILIRUBIN 0.2 mg/dL (0.0-0.3); MAGNESIUM 2.4 mg/dl (1.3-2.7); TOTAL CK 1799 IU/L (1-294); TOTAL PROTEIN 5.5 G/DL (6.4-8.3)
[2018-03-01 19:08] LABS: CREATINE KINASE 1799 IU/L (1-294); TOTAL BILIRUBIN 0.5 MG/DL (0.0-1.0)
[2018-03-01 19:21] LABS: ANISOCYTOSIS 1+; IMM.PLATELET FRACTION 6.6 (1-7); MICROCYTOSIS 1+; PLAT.SUFFICIENCY DECREASED; PLATELET COUNT 48 K/uL (156-360)
[2018-03-01 19:47] LABS: CK-MB 37.6 ng/mL (0.0-4.9); CKMB RELATIVE INDEX 2.1 (0.0-3.9)
[2018-03-02 00:33] LABS: PCO2 30 mm Hg (35-45); PO2 205 mm Hg (80-100)
[2018-03-02 00:34] LABS: BASE EXCESS -5.4 mEq/L (-3 to +3); BICARBONATE 18.6 mEq/L (22-26); CARBOXY HGB 1.1 % (0-5); DEVICE 980; FI02 40 %; MECHANICAL RATE 17 resp/min; METHEMOGLOBIN 0.5 % (0-1.5); MODE BILEVEL; PRESSURE CONTROL VENTILATION 35 CM H20; SITE A-LINE; TOTAL RESP RATE 17 resp/min
[2018-03-02 00:35] LABS: PEEP 0 CM/H20; PRES. SUPPORT 0 CM/H2O
[2018-03-02 00:36] LABS: BASOPHIL (%) 0.2 % (0-1); EOSINOPHIL (%) 0 % (0-5); HEMATOCRIT 25.5 % (36.0-46.0); HEMOGLOBIN 8.5 G/DL (11.9-15.5); IMMATURE GRANULOCYTE (%) 1.5 % (0.0-0.7); LYMPHOCYTE COUNT 0.5 K/uL (1.0-2.8); MCH 31.7 PG (29.0-34.0); MCHC 33.3 G/DL (30.0-36.0); MCV 95.1 FL (83-99); MONOCYTE COUNT 0.4 K/uL (0-0.8); NEUTROPHIL (%) 91.3 % (45-76); NEUTROPHIL COUNT 12.4 K/uL (1.8-6.4); NRBC (%) 0.1 /100 WBC (0-0); RBC DIS.WIDTH-CV 16.4 % (11.8-14.6); RBC DIS.WIDTH-SD 57.8 % (39-53); RED BLOOD COUNT 2.68 M/uL (3.80-5.20); WHITE BLOOD COUNT 13.5 K/uL (4.1-10.2)
[2018-03-02 00:42] LABS: INTER. NORMALIZED RATIO 1.2
[2018-03-02 00:45] LABS: PTT 25.5 SEC (25-37)
[2018-03-02 00:50] LABS: ALBUMIN 4.7 g/dL (3.2-4.8)
[2018-03-02 00:52] LABS: ALBUMIN 4.7 g/dL (3.2-4.8); CHLORIDE 121 mEq/L (99-109); POTASSIUM 3.9 mEq/L (3.7-5.4); SODIUM 153 mEq/L (136-147)
[2018-03-02 00:54] LABS: GLUCOSE 124 mg/dL (70-99)
[2018-03-02 00:56] LABS: ALKALINE PHOSPHATASE 95 IU/L (3-129)
[2018-03-02 00:58] LABS: ALKALINE PHOSPHATASE 94 IU/L (3-129); CREATININE 2.8 mg/dL (0.6-1.3); DIRECT BILIRUBIN 0.5 mg/dL (0.0-0.3); GFR ESTIMATE (CALCULATED) 19 mL/min/
[2018-03-02 00:59] LABS: ALT (GPT) 231 IU/L (3-49); UREA NITROGEN (BUN) 41 mg/dL (9-23)
[2018-03-02 01:01] LABS: ALT (GPT) 230 IU/L (3-49)
[2018-03-02 01:10] LABS: AST (GOT) 157 IU/L (2-34); AST (GOT) 158 IU/L (2-34); MAGNESIUM 2.4 mg/dL (1.3-2.7); TOTAL BILIRUBIN 0.7 mg/dL (0.0-1.0); TOTAL PROTEIN 6.1 g/dL (6.4-8.3)
[2018-03-02 01:57] LABS: GIANT PLATELETS 1+; IMM.PLATELET FRACTION 8.9 (1-7); PLAT.SUFFICIENCY VERY DECREASED; PLATELET COUNT 46 K/uL (156-360)
[2018-03-02 04:18] LABS: DEVICE 980; FI02 40 %; SITE A-LINE
[2018-03-02 04:19] LABS: MECHANICAL RATE 17 resp/min; MODE BILEVEL; PCO2 29 mm Hg (35-45); PEEP 0 CM/H20; PO2 206 mm Hg (80-100); PRESSURE CONTROL VENTILATION 35 CM H20; TOTAL RESP RATE 17 resp/min; pH 7.38 (7.35-7.45)
[2018-03-02 04:20] LABS: BICARBONATE 17.2 mEq/L (22-26); CARBOXY HGB 1.3 % (0-5); METHEMOGLOBIN 1.4 % (0-1.5)
[2018-03-02 04:22] LABS: BASOPHIL (%) 0.2 % (0-1); EOSINOPHIL (%) 0 % (0-5); HEMATOCRIT 25.3 % (36.0-46.0); HEMOGLOBIN 8.5 G/DL (11.9-15.5); IMMATURE GRANULOCYTE (%) 1.3 % (0.0-0.7); LYMPHOCYTE COUNT 0.5 K/uL (1.0-2.8); MCH 32.1 PG (29.0-34.0); MCHC 33.6 G/DL (30.0-36.0); MCV 95.5 FL (83-99); MONOCYTE (%) 1.8 % (3-12); MONOCYTE COUNT 0.3 K/uL (0-0.8); NEUTROPHIL (%) 93.7 % (45-76); NEUTROPHIL COUNT 15.3 K/uL (1.8-6.4); PLATELET COUNT 53 K/uL (156-360); RBC DIS.WIDTH-CV 16.7 % (11.8-14.6); RBC DIS.WIDTH-SD 58.4 % (39-53); RED BLOOD COUNT 2.65 M/uL (3.80-5.20); WHITE BLOOD COUNT 16.3 K/uL (4.1-10.2)
[2018-03-02 04:34] LABS: ALBUMIN 4.4 g/dL (3.2-4.8)
[2018-03-02 04:35] LABS: MAGNESIUM 2.4 mg/dL (1.3-2.7)
[2018-03-02 04:36] LABS: ALBUMIN 4.5 g/dL (3.2-4.8); CHLORIDE 116 mEq/L (99-109); POTASSIUM 3.8 mEq/L (3.7-5.4); SODIUM 150 mEq/L (136-147)
[2018-03-02 04:37] LABS: TOTAL PROTEIN 5.7 g/dL (6.4-8.3)
[2018-03-02 04:38] LABS: GLUCOSE 177 mg/dL (70-99); TOTAL PROTEIN 5.7 g/dL (6.4-8.3)
[2018-03-02 04:39] LABS: TOTAL BILIRUBIN 0.8 mg/dL (0.0-1.0)
[2018-03-02 04:40] LABS: ALKALINE PHOSPHATASE 104 IU/L (3-129); PHOSPHORUS 2.6 mg/dL (2.5-4.9); TOTAL BILIRUBIN 0.8 mg/dL (0.0-1.0)
[2018-03-02 04:42] LABS: ALKALINE PHOSPHATASE 104 IU/L (3-129); AST (GOT) 138 IU/L (2-34); CREATININE 2.8 mg/dL (0.6-1.3); DIRECT BILIRUBIN 0.6 mg/dL (0.0-0.3); GFR ESTIMATE (CALCULATED) 19 mL/min/
[2018-03-02 04:42] LABS: GAMMA-GT 250 IU/L (4-73)
[2018-03-02 04:43] LABS: ALT (GPT) 216 IU/L (3-49); UREA NITROGEN (BUN) 45 mg/dL (9-23)
[2018-03-02 04:44] LABS: AST (GOT) 138 IU/L (2-34)
[2018-03-02 04:45] LABS: ALT (GPT) 216 IU/L (3-49)
[2018-03-02 04:53] LABS: INTER. NORMALIZED RATIO 1.2
[2018-03-02 04:56] LABS: PTT 25.7 SEC (25-37)
[2018-03-02 06:26] LABS: GAMMA-GT 331 IU/L (4-73)
[2018-03-02 07:16] LABS: APPEARANCE CLEAR ((CLEAR)); BILIRUBIN NEGATIVE; BLOOD MODERATE; COLOR YELLOW ((YELLOW)); GLUCOSE (STRIP) NEGATIVE; KETONES NEGATIVE; LEUKOCYTES NEGATIVE; NITRITE NEGATIVE; PROTEIN (STRIP) NEGATIVE; SPECIFIC GRAVITY 1.009 (1.000-1.030); UROBILINOGEN 0.2 MG/DL (0.2-1.0)
[2018-03-02 07:54] LABS: BACTERIA RARE /HPF; CALCIUM OXALATE CRYSTALS 2+ /HPF; EPITHELIAL CELLS NONE SEEN /HPF; MUCUS NONE SEEN /LPF; WHITE BLOOD CELLS 0-5 /HPF (0-5)
== END 2018-03-02 10:39 | DRG 296 ==
LOC: EME 18:36 → EDOF 20:10 → 4WEST 20:10 → ENRESERV 20:15 → CANRESERV 20:15 → ENRESERV 20:27 → ENRESERVTM 20:53 → ENRESERV 21:00 → 4WEST 21:05
PROVIDERS: Emergency Medicine; Internal Medicine Critical Care Medicine; Surgery
DX: I46.9 Cardiac arrest, cause unspecified (principal); J96.20 Acute and chronic respiratory failure, unspecified whether with hypoxia or hypercapnia; J44.1 Chronic obstructive pulmonary disease with (acute) exacerbation; G93.1 Anoxic brain damage, not elsewhere classified; G93.6 Cerebral edema; E87.4 Mixed disorder of acid-base balance; J98.19 Other pulmonary collapse; F11.20 Opioid dependence, uncomplicated; M62.82 Rhabdomyolysis; I48.91 Unspecified atrial fibrillation; E83.51 Hypocalcemia; R40.2433 Glasgow coma scale score 3-8, at hospital admission; F41.9 Anxiety disorder, unspecified; E78.5 Hyperlipidemia, unspecified; G25.3 Myoclonus; D64.9 Anemia, unspecified; G89.29 Other chronic pain; E87.5 Hyperkalemia; F17.200 Nicotine dependence, unspecified, uncomplicated; Z98.82 Breast implant status; Z90.710 Acquired absence of both cervix and uterus; Z88.5 Allergy status to narcotic agent; Z88.0 Allergy status to penicillin; Z88.8 Allergy status to other drugs, medicaments and biological substances; Z99.81 Dependence on supplemental oxygen
CPT/HCPCS: 36600; 70450; 71045; 71046; 71275; 78610; 80047; 80048; 80048 91; 80053; 80076; 81003; 82150; 82330; 82550; 82550 91; 82553; 82803; 82948; 82977; 83605; 83690; 83735; 83880; 83930; 83935; 84100; 84450; 84478; 84484; 84702; 84999; 85025; 85025 91; 85027; 85610; 85730; 86850; 86900; 86901; 87040; 87070; 87086; 87106; 87205; 87641; 88331; 93005; 93306; 94002; 94003; 94640; 94640 76; 95819; 99202; 99281; 99284; 99285; A9539; C1751; C1894; C9113; G0480; J0360; J1644; J1815; J1940; J1956; J2250; J2704; J2930; J3010; J3475; J3480; J7030; J7040; J7050; P9047; S0028